=== PATIENT | male | born 1970 | race Caucasian/White ===

== ENCOUNTER 2016-11-18 06:55 | Inpatient (IN) | payer MEDICARE, OTHER, SELFPAY ==
[~2016-11-18] VITALS: Ht 172.7 cm; Wt 100.9 kg
[~2016-11-18 06:55] MED LIST: AMBI5TAB PO; Ambien PO; BUSP10TA PO; BUSP15TA47 PO; CLON0.5T PO; CLON1TAB PO; DEPA500T2 PO; DIVA250T PO; FLUO20CA8 PO; FLUO20CA9 PO; HYDR-4274 PO; HYDRO50TAB PO; KLON1TAB PO; LATU40TA PO; LATU80TA PO; PROZ40CA PO; QUET1TAB8 PO; QUET5TAB PO; REST15CA PO; SERO50TA PO; TEGR100C PO; TRAM50TA2 PO; TRAZ100T4 PO; TRAZ10TA PO; TRAZ50TA4 PO; TRAZO50TA PO; TYLE325C PO; VIST50CA PO
[2016-11-18] MEDS ORDERED: ONDANSETRON 4 MG TAB (S0181) As Ordered ONE (08:00)
[2016-11-18] MEDS ORDERED: GI COCKTAIL 50ML BTL(HYOSCYAMINE/MAALOX/LIDOCAINE VISCOUS)(1:3:1) As Ordered ONE (08:00)
[2016-11-18] MEDS ORDERED: PERCOCET 5MG/325MG TAB As Ordered ONE (08:01)
--- NOTE | 2016-11-18 08:22 | REP ---
Clinical: Pain with recent trauma/fall. Technique: AP, lateral, bilateral oblique views of the left ankle. Findings: Mild anterolateral soft tissue swelling is appreciated. Age-related degenerative changes include subtle spurring at the medial malleolus and small calcaneal heal spur. No acute fracture or dislocation. Ankle mortise intact. Impression: Soft tissue swelling and age-related degenerative changes. No acute fracture or dislocation. Signed by Axel Yu MD 11/18/2016 08:13 A
--- NOTE | 2016-11-18 08:23 | REP ---
Clinical: Trauma. Technique: AP, lateral views of the left knee. Findings: The osseous structures and joint spaces are intact and normal. There is no evidence for acute fracture or dislocation. No joint effusion is appreciated. Surrounding soft tissues are unremarkable. No subcutaneous emphysema or radiodense foreign body. Impression: Normal examination. No acute fracture or dislocation. Signed by Axel Yu MD 11/18/2016 08:14 A
[2016-11-18] MEDS ORDERED: DIVALPROEX 250 MG TAB As Ordered ONE (08:27)
--- NOTE | 2016-11-18 16:11 | EDDOCDS ---
Nurse's Notes [facility] Name: Aramis Yang Age: 46 yrs Sex: Male : 1970 Arrival Date: 11/18/2016 Time: 06:[address] MD: Diagnosis: Major depressive disorder, recurrent, unspecified Presentation: 11/18 06:58 Presenting complaint: Patient states: "I took some pills and drank a lot." Transferred af2 from [place] for mental health eval after 6 hr observation. Mental Health Triage Level: Level 2: The patient was brought to the ED for evaluation because of a legal pickup order. Adult Sepsis Screening: The patient does not have new or worsening altered mentation. Patient's respiratory rate is less than 22. Systolic blood pressure is greater than 100. Patient has a qSOFA score of 0- Negative Sepsis Screen. Suicide/Homicide risk assessment- the patient denies having any suicidal and/or homicidal ideations and does not present with any other emotional, behavioral or mental health complaints. Status: Patient is not a home service director or dependent. Transition of care: patient was not received from another setting of care. 06:58 Acuity: JAMARI Level 3 af2 06:58 Method Of Arrival: Ambulance af2 Triage Assessment: 06:59 General: Appears in no apparent distress, Behavior is cooperative. Pain: Location: left af2 leg Pain currently is 6 out of 10 on a pain scale. Pt Declines HIV testing. The patient is triaged at the bedside. See Assessment in Nurses Notes section of ED record. Neurological: Level of Consciousness is awake, alert, obeys commands, Oriented to person, place, time. Cardiovascular: Heart tones S1 S2 present. Respiratory: Airway is patent Respiratory effort is even, unlabored. Derm: Skin is normal. Historical: - Allergies: No known drug Allergies; - Home Meds: 1. BuSpar 15 mg Oral tab 1 tab tid 2. Depakote 500 mg Oral TbEC 1 tab 2 tabs in am, 2 tabs pm 3. Seroquel 50 mg Oral tab 1 tab nightly 4. Prozac 40 mg Oral cap 1 cap once daily 5. trazodone 100 mg Oral tab HS - PMHx: Bipolar disorder; insomnia; Seizure Disorder; - PSHx: Tonsillectomy; - Social history: Smoking status: Patient uses tobacco products, current every day smoker. No barriers to communication noted, The patient speaks fluent Syrian. - Family history: Not pertinent. - : The pt / caregiver states he / she is not on anticoagulants. Home medication list is obtained from the patient. - Exposure Risk Screening:: None identified. Screenin:31 Screening information is obtained from the patient. Fall risk: No risks identified. ja5 Assistance ADL's: requires no assistance with activities of daily living. Abuse/DV Screen: The patient / caregiver reports he/she is: not in a situation that causes fear, pain or injury. Nutritional screening: On no prescribed diet. Advance Directives: There is an active Power of Tester Operator Helper, Sally Yang, mother. home support is adequate. Assessment: 08:09 General: Appears uncomfortable, Behavior is cooperative. Pain: Location: left lateral ja5 ankle and left knee Pain currently is 8 out of 10 on a pain scale. Neurological: Level of Consciousness is awake, alert, Oriented to person, place, time. Cardiovascular: Capillary refill < 3 seconds Heart tones S1 S2 present. Respiratory: Airway is patent Respiratory effort is even, unlabored, Breath sounds are clear bilaterally. GI: Abdomen is obese, Bowel sounds present X 4 quads. Abd is soft X 4 quads Abd is non tender X 4 quads Reports nausea. Derm: Skin is pink, warm & dry. 10:00 Reassessment: Patient appears in no apparent distress at this time. Breakfast tray has jc4 been delivered. Security observation maintained. 11:01 General: Pt resting on stretcher. No distress noted at this time. Color pink, skin warm jc4 and dry. Respirations easy and full. Security observation continuing. 12:47 General: Appears in no apparent distress, Behavior is cooperative, pleasant. Pain: Pain jc4 currently is 7 out of 10 on a pain scale. Neurological: Level of Consciousness is awake, alert, Oriented to person, place, time. Respiratory: Airway is patent Respiratory effort is even, unlabored, Respiratory pattern is regular, symmetrical. Derm: Skin is pink, warm & dry. 14:40 Reassessment: Patient appears in no apparent distress at this time. jc4 15:30 General: Appears in no apparent distress, comfortable, Behavior is cooperative. Pain: bcj Denies pain. Derm: Skin is pink, warm & dry. Mental Health Eval: 07:38 Mental health consult is initiated at 07:20. Status: The patient is not a home service director or dependent. [facility] Behavioral Health: The patient is not an established patient of [facility] Behavioral Health. Referral Information: Evaluation referral is generated by Pt was transferred from [facility] after taking multiple drug overdose, consuming alcohol. Pt states at the time he "didn't want to wake up".. Pt states he was told he was going to be evicted from his apartment because he plays his music too loud.. The patient was referred for evaluation because . Subjective: The patients chief complaint is I got upset because my landlord wants to evict me. 08:29 Mental Health history: alcohol abuse, depression, Mental Health Admissions: Multiple at [facility] Current Outpatient Mental Health Services: Psychiatrist / Agency: Dr Anaya at [facility]. Therapist / Agency: Phoebe at [facility]. Current living environment is The patient currently lives alone. The patient is single. Patient presents to Emergency Department with the following symptoms within the past 2 weeks: alcohol abuse, depressed mood, feelings of helplessness/hopelessness, poor impulse control, suicidal ideation with attempt/gesture by pills. Mental status exam: Patients appearance is appropriate, Patient's behavior is cooperative, Speech is normal. Affect is appropriate. 09:31 Mental status exam: Mood is depressed. Hallucinations are denied. Appetite is normal. Memory is good. Energy level is hyperactive. Content of thought is normal. Thought process is intact. Cognitive level is oriented to person, place, time and situation Patient's insight is poor. Judgement is poor. Rapport with interviewer is good. Suicidal Ideation present with a plan to kill self by pills. Homicidal ideation is not present. Disposition: Medically cleared for disposition by Shazia Kingsley MD Psychiatric Consult is performed by phone with Dr Glenn Cox MD. [facility] Admission Criteria: The patient has had a suicide attempt in the recent past. pt took polysubstance overdose. The patient is experiencing suicidal ideation. The patient requires continuous observation and/or control to protect self, others or property. The patient's care requires a multi-modal treatment plan under close supervision and coordination due to the complexity and severity of the patient's symptoms. The patient requires administration and monitoring of psychoactive medications by skilled medical providers due to the side effects of the psychoactive medications or significant dosage adjustments. Legal Status: Patient's legal status will be Emergency admission: 9.39. DSM-V Differential Diagnosis: Bipolar I Disorder (F31.0) Current or most recent episode depressed, severe (F31.34). Narrative:. 12:19 Narrative: Pt states he took overdose of most of his medications because his landlord ac said he has to leave due to playing his music too loud. Pt states he thinks his landlord is trying to kick him out so he can charge higher rent for the summer. Pt reports compliance with medications, treatment. Pt reports sleep, appetite are unchanged. Pt denies drug use, states he drank vodka and orange juice last night and took the medications in order to kill himself. PT denies AH/VH, no delusions elicited. Pt states he has overdosed before on multiple occasions, at least once resulting in him being intubated for 5 days. Pt's insight, judgment are poor. Vital Signs: 06:58 BP 147 / 101; Pulse 86; Resp 20; Temp 96.7(T); Pulse Ox 96% on R/A; Weight 97.07 kg dpm (R); Height 5 ft. 8 in. (172.72 cm) (R); Pain 8/10; 09:30 Pain 7/10; jc4 12:00 BP 144 / 87; Pulse 104; Resp 20; Temp 96.0(O); Pulse Ox 95% on R/A; Pain 7/10; jc4 15:52 BP 156 / 98; Pulse 82; Resp 16; Temp 97.2(O); Pulse Ox 95% on R/A; bcj 16:09 BP 146 / 82; pml 06:58 Body Mass Index 32.54 (97.07 kg, 172.72 cm) dpm Vitals: 11:03 Log In Time N/A - ambulance arrival. jc4 ED Course: 06:56 Patient visited by Ronna Moreno Reg. hs2 06:56 Patient moved to Waiting hs2 06:56 Patient moved to [facility] hs2 06:58 Patient visited by Anant Mckee. dpm 06:59 Triage Initiated af2 06:59 Pt greeted and oriented to ED. Patient advised of names of staff involved in care, dpm location of call joseph, wait times and NPO status. Patient has correct armband on for positive identification. Placed in gown. Placed in psych safe attire. Security observing. Property removed, inventory done, secured in belongings bag- placed in locked locker. Placed in locker 2. Psych Safety Check: Location: Psych Room. Visual Assessment: Cooperative. 07:06 Ai Sam,RN is Primary Nurse. ja5 07:07 Patient visited by Hilary Adamson,HIEN. af2 07:15 Teena Moise, HIEN is Primary Nurse. jc4 07:15 Shazia Kingsley MD is Attending Physician. fg 07:15 Patient visited by Shazia Kingsley MD. fg 07:30 Patient visited by Anant Mckee. dpm 07:46 Patient visited by Anant Mckee. dpm 07:47 [facility] Payment Agreement was scanned into [employer] and attached to record. mm15 08:02 Patient visited by Anant Mckee. dpm 08:18 Patient visited by Anant Mckee. dpm 08:30 The patient / caregiver is instructed regarding the plan of care and ED course. jc4 08:31 Patient visited by Anant Mckee. dpm 08:50 Patient visited by Anant Mckee. dpm 08:59 Ankle, Complete Returned. EDMS 08:59 Knee, (AP\\E\\Lat) Returned. EDMS 09:02 Patient visited by Anant Mckee. dpm 09:18 Patient visited by Anant Mckee. dpm 09:32 Patient visited by Anant Mckee. dpm 09:46 Patient visited by Anant Mckee. dpm 10:02 Patient visited by Anant Mckee. dpm 10:16 Patient visited by Anant Mckee. dpm 10:32 Patient visited by Anant Mckee. dpm 10:48 Patient visited by Anant Mckee. dpm 11:09 Patient visited by Anant Mckee. dpm 11:23 Patient visited by Anant Mckee. dpm 11:47 Patient visited by Anant Mckee. dpm 12:01 Patient visited by Anant Mckee. dpm 12:17 Patient visited by Anant Mckee. dpm 12:36 Patient visited by Anant Mckee. dpm 12:46 Patient visited by Anant Mckee. dpm 13:03 Patient visited by Anant Mckee. dpm 13:18 Patient visited by Anant Mckee. dpm 13:32 Patient visited by Anant Mckee. dpm 13:48 Patient visited by Anant Mckee. dpm 14:17 Patient visited by Anant Mckee. dpm 14:57 Patient visited by Anant Mckee. dpm 15:17 Patient visited by Anant Mckee. dpm 15:30 Resting quietly. Awaiting bed assignment. bcj 15:30 Security observing. bcj 15:31 Patient visited by Dileep Paredes, HIEN. bcj 15:43 Patient visited by Anant Mckee. dpm 15:43 E Legal paperwork was scanned into [employer] and attached to record. jl 15:53 Patient visited by Dileep Paredes, HIEN. bcj 15:56 Glenn Cox MD is Hospitalizing Provider. fg 16:00 Patient visited by Anant Mckee. dpm 16:03 No IV's were initiated during this patient's visit. No procedures done that require [facility] assistance. 16:05 Patient visited by Dileep Paredes, HIEN. bcj 16:10 Patient visited by Haydee Crenshaw,HIEN. pml Administered Medications: 08:06 Drug: GI Cocktail - (Alum-Mag Hydroxide-Simeth Suspension 225 mg-200 mg-25 mg/5 mL 30 ja5 ml, Lidocaine Liquid 2 % 10 ml, Hyoscyamine Liquid 10 ml) Route: PO; 08:06 Drug: oxyCODONE-acetaminophen 1 tabs [oxycodone-acetaminophen 5 mg-325 mg tablet (1 ja5 tabs)] Route: PO; 09:30 Follow up: Pain 7/10 Adult jc4 08:06 Drug: Ondansetron 4 mg [ondansetron HCl 4 mg tablet (1 tabs)] Route: PO; ja5 09:30 Follow up: Denies nausea jc4 08:31 Drug: Depakote DR - Divalproex Sodium 1000 mg [divalproex 250 mg tablet,delayed release ja5 (4 tabs)] Route: PO; Attachments: 15:43 E Legal paperwork jl Intake: Order Results: Radiology Order: Ankle, Complete Test: Ankle, Complete REASON FOR EXAMINATION: diffuse ankle pain after fall; Clinical: Pain with recent trauma/fall.; ; Technique: AP, lateral, bilateral oblique views of the left ankle.; ; Findings:; Mild anterolateral soft tissue swelling is appreciated. Age-related degenerative; changes include subtle spurring at the medial malleolus and small calcaneal heal; spur. No acute fracture or dislocation. Ankle mortise intact.; ; Impression:; Soft tissue swelling and age-related degenerative changes.; No acute fracture or dislocation.; ; ; Signed by; Axel Yu MD 11/18/2016 08:13 A; Radiology Order: Knee, (AP\\E\\Lat) Test: Knee, (AP\\E\\Lat) REASON FOR EXAMINATION: bilateral knee pain after fall; Clinical: Trauma.; ; Technique: AP, lateral views of the left knee.; ; Findings: The osseous structures and joint spaces are intact and normal. There; is no evidence for acute fracture or dislocation. No joint effusion is; appreciated. Surrounding soft tissues are unremarkable. No subcutaneous; emphysema or radiodense foreign body.; ; Impression:; Normal examination. No acute fracture or dislocation.; ; ; Signed by; Axel Yu MD 11/18/2016 08:14 A; Outcome: 15:56 Decision to Hospitalize by Provider. fg 16:03 Discharge Assessment: patient administered narcotics - no. The following High Risk [facility] Discharge criteria are identified: None. Admitted to Psych accompanied by tech, via wheelchair. Condition: stable. No special radiology studies were completed. 16:10 Patient left the ED. pml Signatures: Dispatcher [employer] EDMS Dileep Paredes RN HIEN bcInocente Olivera, PSA PSA ac Burt Hoover, PSA PSA Teena Armando RN RN alison4 Haydee Crenshaw RN RN pml Marolf, Dustin dpm McGrath, Marlynn mm15 Hilary Adamson RN RN af2 Shazia Kingsley MD MD Ronna Moreno, Reg Reg hs2 Ai Sam RN RN ja5 MTDD
--- NOTE | 2016-11-18 16:11 | EDDOCDS ---
Physician Documentation [facility] Name: Aramis Yang Age: 46 yrs Sex: Male : 1970 Arrival Date: 11/18/2016 Time: 06:55 Bed [facility] MD: Disposition: 11/18/16 15:56 Hospitalization ordered by Glenn Cox for Inpatient Admission. Preliminary diagnosis is Major depressive disorder, recurrent, unspecified. - Bed requested for Admit. - Status is Inpatient Admission. pml - Condition is Stable. - Problem is new. - Symptoms have worsened. Historical: - Allergies: No known drug Allergies; - Home Meds: 1. BuSpar 15 mg Oral tab 1 tab tid 2. Depakote 500 mg Oral TbEC 1 tab 2 tabs in am, 2 tabs pm 3. Seroquel 50 mg Oral tab 1 tab nightly 4. Prozac 40 mg Oral cap 1 cap once daily 5. trazodone 100 mg Oral tab HS - PMHx: Bipolar disorder; insomnia; Seizure Disorder; - PSHx: Tonsillectomy; - Social history: Smoking status: Patient uses tobacco products, current every day smoker. No barriers to communication noted, The patient speaks fluent Equ[place] Guinean. - Family history: Not pertinent. - : The pt / caregiver states he / she is not on anticoagulants. Home medication list is obtained from the patient. - Exposure Risk Screening:: None identified. Vital Signs: 11/18 06:58 BP 147 / 101; Pulse 86; Resp 20; Temp 96.7(T); Pulse Ox 96% on R/A; Weight 97.07 kg / dpm 214 lbs (R); Height 5 ft. 8 in. (172.72 cm) (R); Pain 8/10; 09:30 Pain 7/10; jc4 12:00 BP 144 / 87; Pulse 104; Resp 20; Temp 96.0(O); Pulse Ox 95% on R/A; Pain 7/10; jc4 15:52 BP 156 / 98; Pulse 82; Resp 16; Temp 97.2(O); Pulse Ox 95% on R/A; bcj 16:09 BP 146 / 82; pml 06:58 Body Mass Index 32.54 (97.07 kg, 172.72 cm) dpm MDM: 07:23 GI Cocktail - (Alum-Mag Hydroxide-Simeth 30 ml, Lidocaine 10 ml, Hyoscyamine 10 ml) PO fg once; Pre-mixed 50mL unit dose ordered. 07:23 oxyCODONE-acetaminophen 5 mg-325 mg 1 tabs PO once ordered. fg 07:23 Ondansetron 4 mg PO once ordered. fg 07:25 Ankle, Complete Ordered. EDMS 07:25 Knee, (AP\E\Lat) Ordered. EDMS 07:46 Financial registration complete. mm15 07:47 [facility] Payment Agreement was scanned into [employer] and attached to record. mm15 08:12 Consult: Specialized Developer ordered. dy 08:12 Misc. Nursing Order ordered. dy 08:23 REGULAR DIET PLASTIC BLAKELY+DIET ordered. EDMS 08:[address] - Divalproex Sodium Delayed Release Tablet 1000 mg PO once ordered. jc4 12:49 REGULAR DIET PLASTIC BLAKELY+DIET ordered. EDMS 15:41 Admit to IMHU: ordered. EDMS 15:43 [facility] Legal paperwork was scanned into [employer] and attached to record. jl 16:10 Consult: Specialized Developer complete. pml Administered Medications: 08:06 Drug: GI Cocktail - (Alum-Mag Hydroxide-Simeth Suspension 225 mg-200 mg-25 mg/5 mL 30 ja5 ml, Lidocaine Liquid 2 % 10 ml, Hyoscyamine Liquid 10 ml) Route: PO; 08:06 Drug: oxyCODONE-acetaminophen 1 tabs [oxycodone-acetaminophen 5 mg-325 mg tablet (1 ja5 tabs)] Route: PO; 09:30 Follow up: Pain 7/10 Adult jc4 08:06 Drug: Ondansetron 4 mg [ondansetron HCl 4 mg tablet (1 tabs)] Route: PO; ja5 09:30 Follow up: Denies nausea jc4 08:31 Drug: Depakote DR - Divalproex Sodium 1000 mg [divalproex 250 mg tablet,delayed release ja5 (4 tabs)] Route: PO; Signatures: Dispatcher [employer] EDMS Burt Hoover, PSA PSA Aidan Montes De Oca RN RN dy Castle, Jennifer, RN RN jc4 Haydee Crenshaw RN RN pml Guillermina Draper mm15 Hilary Adamson RN RN af2 Shazia Kingsley MD MD fg Anderson, Jessica RN ja5 The chart was reviewed and I authenticate all verbal orders and agree with the evaluation and treatment provided.Attachments: 07:47 [facility] Payment Agreement mm15 MTDD
[2016-11-18] MEDS ORDERED: SERO1TAB PO (16:24)
[2016-11-18] MEDS ORDERED: ZALE10CA PO (16:24)
[2016-11-18] MEDS ORDERED: DEPA500T2 PO (16:24)
[2016-11-18] MEDS ORDERED: BUSP15TA47 PO (16:24)
[2016-11-18] MEDS ORDERED: PROZ40CA PO (16:24)
[2016-11-18] MEDS ORDERED: TRAM50TA2 PO (16:24)
[2016-11-18] MEDS ORDERED: TRAZ150T14 PO (16:24)
[2016-11-18] MEDS ORDERED: KEPP500T6 PO (16:24)
[2016-11-18 16:47] VITALS: BP 146/90
[2016-11-18] MEDS ORDERED: MOM 30ML SUSPENSION UDC PO PRN (18:00)
[2016-11-18] MEDS ORDERED: MAALOX 30 ML SUSP *UDC PO PRN (18:00)
[2016-11-18] MEDS: traMADol 50 MG TAB PO PRN (18:27)
[2016-11-18] MEDS: QUEtiapine FUMARATE 100 MG TAB PO SCH (20:05)
[2016-11-18] MEDS: DIVALPROEX 500MG *ER* TAB PO SCH (20:05)
[2016-11-18] MEDS: levETIRAcetam 250MG TABLET (KEPPRA) PO SCH (20:05)
[2016-11-18] MEDS: busPIRone 5 MG TAB PO SCH (20:05)
[2016-11-18] MEDS: traZODone 50 MG TAB PO SCH (21:00)
[2016-11-19 07:00] VITALS: BP 148/101
[2016-11-19] MEDS: busPIRone 5 MG TAB PO SCH ×3 (09:53→20:33)
[2016-11-19] MEDS: levETIRAcetam 250MG TABLET (KEPPRA) PO SCH ×2 (09:54→22:26)
[2016-11-19] MEDS: DIVALPROEX 500MG *ER* TAB PO SCH ×2 (09:54→20:33)
[2016-11-19] MEDS: FLUoxetine 20 MG CAP PO SCH (09:54)
[2016-11-19] MEDS: NICOTINE 21MG/24HR 1 EA TRANSDERMAL TD SCH (09:58)
[2016-11-19 18:00] VITALS: BP 157/98
[2016-11-19] MEDS: traZODone 50 MG TAB PO SCH (22:26)
[2016-11-19] MEDS: QUEtiapine FUMARATE 100 MG TAB PO SCH (22:26)
[2016-11-20 06:23] VITALS: BP 134/81
[2016-11-20 07:23] LABS: ALBUMIN 3.2 GM/DL (3.2-5.2); ALBUMIN/GLOBULIN RATIO 1.14 (1.00-1.93); ALKALINE PHOSPHATASE 105 U/L (45-117); ALT/SGPT 28 U/L (12-78); ANION GAP 8 MEQ/L (8-16); AST/SGOT 15 U/L (15-37); BILIRUBIN,TOTAL 0.2 MG/DL (0.2-1.0); BLOOD UREA NITROGEN 20 MG/DL (7-18); CALCIUM LEVEL 8.3 MG/DL (8.5-10.1); CARBON DIOXIDE LEVEL 30 MEQ/L (21-32); CHLORIDE LEVEL 102 MEQ/L (98-107); CREATININE FOR GFR 0.92 MG/DL (0.70-1.30); GLOMERULAR FILTRATION RATE > 60.0 (>60); GLUCOSE, FASTING 111 MG/DL (70-105); POTASSIUM SERUM 4.3 MEQ/L (3.5-5.1); SODIUM LEVEL 140 MEQ/L (136-145)
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
[2016-11-20] MEDS: levETIRAcetam 250MG TABLET (KEPPRA) PO SCH ×2 (09:00→21:00)
[2016-11-20] MEDS: NICOTINE 21MG/24HR 1 EA TRANSDERMAL TD SCH (09:12)
[2016-11-20] MEDS: DIVALPROEX 500MG *ER* TAB PO SCH ×2 (09:13→20:22)
[2016-11-20] MEDS: FLUoxetine 20 MG CAP PO SCH (09:13)
[2016-11-20] MEDS: busPIRone 5 MG TAB PO SCH ×3 (09:13→20:25)
[2016-11-20] MEDS: traMADol 50 MG TAB PO PRN (15:12)
--- NOTE | 2016-11-20 17:11 | EDDOCDS ---
Nurse's Notes [facility] Name: Aramis Yang Age: 46 yrs Sex: Male : 1970 Arrival Date: 11/18/2016 Time: 06:[address] MD: Diagnosis: Major depressive disorder, recurrent, unspecified Presentation: 11/18 06:58 Presenting complaint: Patient states: "I took some pills and drank a lot." Transferred af2 from [facility] for mental health eval after 6 hr observation. Mental Health Triage Level: Level 2: The patient was brought to the ED for evaluation because of a legal pickup order. Adult Sepsis Screening: The patient does not have new or worsening altered mentation. Patient's respiratory rate is less than 22. Systolic blood pressure is greater than 100. Patient has a qSOFA score of 0- Negative Sepsis Screen. Suicide/Homicide risk assessment- the patient denies having any suicidal and/or homicidal ideations and does not present with any other emotional, behavioral or mental health complaints. Status: Patient is not a client services vice president or dependent. Transition of care: patient was not received from another setting of care. 06:58 Acuity: JAMARI Level 3 af2 06:58 Method Of Arrival: Ambulance af2 Triage Assessment: 06:59 General: Appears in no apparent distress, Behavior is cooperative. Pain: Location: left af2 leg Pain currently is 6 out of 10 on a pain scale. Pt Declines HIV testing. The patient is triaged at the bedside. See Assessment in Nurses Notes section of ED record. Neurological: Level of Consciousness is awake, alert, obeys commands, Oriented to person, place, time. Cardiovascular: Heart tones S1 S2 present. Respiratory: Airway is patent Respiratory effort is even, unlabored. Derm: Skin is normal. Historical: - Allergies: No known drug Allergies; - Home Meds: 1. BuSpar 15 mg Oral tab 1 tab tid 2. Depakote 500 mg Oral TbEC 1 tab 2 tabs in am, 2 tabs pm 3. Seroquel 50 mg Oral tab 1 tab nightly 4. Prozac 40 mg Oral cap 1 cap once daily 5. trazodone 100 mg Oral tab HS - PMHx: Bipolar disorder; insomnia; Seizure Disorder; - PSHx: Tonsillectomy; - Social history: Smoking status: Patient uses tobacco products, current every day smoker. No barriers to communication noted, The patient speaks fluent Slovenian. - Family history: Not pertinent. - : The pt / caregiver states he / she is not on anticoagulants. Home medication list is obtained from the patient. - Exposure Risk Screening:: None identified. Screenin:31 Screening information is obtained from the patient. Fall risk: No risks identified. ja5 Assistance ADL's: requires no assistance with activities of daily living. Abuse/DV Screen: The patient / caregiver reports he/she is: not in a situation that causes fear, pain or injury. Nutritional screening: On no prescribed diet. Advance Directives: There is an active Power of Crepe Machine Operator, Sally Yang, mother. home support is adequate. Assessment: 08:09 General: Appears uncomfortable, Behavior is cooperative. Pain: Location: left lateral ja5 ankle and left knee Pain currently is 8 out of 10 on a pain scale. Neurological: Level of Consciousness is awake, alert, Oriented to person, place, time. Cardiovascular: Capillary refill < 3 seconds Heart tones S1 S2 present. Respiratory: Airway is patent Respiratory effort is even, unlabored, Breath sounds are clear bilaterally. GI: Abdomen is obese, Bowel sounds present X 4 quads. Abd is soft X 4 quads Abd is non tender X 4 quads Reports nausea. Derm: Skin is pink, warm & dry. 10:00 Reassessment: Patient appears in no apparent distress at this time. Breakfast tray has jc4 been delivered. Security observation maintained. 11:01 General: Pt resting on stretcher. No distress noted at this time. Color pink, skin warm jc4 and dry. Respirations easy and full. Security observation continuing. 12:47 General: Appears in no apparent distress, Behavior is cooperative, pleasant. Pain: Pain jc4 currently is 7 out of 10 on a pain scale. Neurological: Level of Consciousness is awake, alert, Oriented to person, place, time. Respiratory: Airway is patent Respiratory effort is even, unlabored, Respiratory pattern is regular, symmetrical. Derm: Skin is pink, warm & dry. 14:40 Reassessment: Patient appears in no apparent distress at this time. jc4 15:30 General: Appears in no apparent distress, comfortable, Behavior is cooperative. Pain: bcj Denies pain. Derm: Skin is pink, warm & dry. Mental Health Eval: 07:38 Mental health consult is initiated at 07:20. Status: The patient is not a client services vice president or dependent. [facility] Behavioral Health: The patient is not an established patient of [facility] Behavioral Health. Referral Information: Evaluation referral is generated by Pt was transferred from [facility] after taking multiple drug overdose, consuming alcohol. Pt states at the time he "didn't want to wake up".. Pt states he was told he was going to be evicted from his apartment because he plays his music too loud.. The patient was referred for evaluation because . Subjective: The patients chief complaint is I got upset because my landlord wants to evict me. 08:29 Mental Health history: alcohol abuse, depression, Mental Health Admissions: Multiple at [facility] Current Outpatient Mental Health Services: Psychiatrist / Agency: Dr Anaya at [facility]. Therapist / Agency: Phoebe at [facility]. Current living environment is The patient currently lives alone. The patient is single. Patient presents to Emergency Department with the following symptoms within the past 2 weeks: alcohol abuse, depressed mood, feelings of helplessness/hopelessness, poor impulse control, suicidal ideation with attempt/gesture by pills. Mental status exam: Patients appearance is appropriate, Patient's behavior is cooperative, Speech is normal. Affect is appropriate. 09:31 Mental status exam: Mood is depressed. Hallucinations are denied. Appetite is normal. Memory is good. Energy level is hyperactive. Content of thought is normal. Thought process is intact. Cognitive level is oriented to person, place, time and situation Patient's insight is poor. Judgement is poor. Rapport with interviewer is good. Suicidal Ideation present with a plan to kill self by pills. Homicidal ideation is not present. Disposition: Medically cleared for disposition by Shazia Kingsley MD Psychiatric Consult is performed by phone with Dr Glenn Cox MD. [facility] Admission Criteria: The patient has had a suicide attempt in the recent past. pt took polysubstance overdose. The patient is experiencing suicidal ideation. The patient requires continuous observation and/or control to protect self, others or property. The patient's care requires a multi-modal treatment plan under close supervision and coordination due to the complexity and severity of the patient's symptoms. The patient requires administration and monitoring of psychoactive medications by skilled medical providers due to the side effects of the psychoactive medications or significant dosage adjustments. Legal Status: Patient's legal status will be Emergency admission: 9.39. DSM-V Differential Diagnosis: Bipolar I Disorder (F31.0) Current or most recent episode depressed, severe (F31.34). Narrative:. 12:19 Narrative: Pt states he took overdose of most of his medications because his landlord ac said he has to leave due to playing his music too loud. Pt states he thinks his landlord is trying to kick him out so he can charge higher rent for the summer. Pt reports compliance with medications, treatment. Pt reports sleep, appetite are unchanged. Pt denies drug use, states he drank vodka and orange juice last night and took the medications in order to kill himself. PT denies AH/VH, no delusions elicited. Pt states he has overdosed before on multiple occasions, at least once resulting in him being intubated for 5 days. Pt's insight, judgment are poor. Vital Signs: 06:58 BP 147 / 101; Pulse 86; Resp 20; Temp 96.7(T); Pulse Ox 96% on R/A; Weight 97.07 kg dpm (R); Height 5 ft. 8 in. (172.72 cm) (R); Pain 8/10; 09:30 Pain 7/10; jc4 12:00 BP 144 / 87; Pulse 104; Resp 20; Temp 96.0(O); Pulse Ox 95% on R/A; Pain 7/10; jc4 15:52 BP 156 / 98; Pulse 82; Resp 16; Temp 97.2(O); Pulse Ox 95% on R/A; bcj 16:09 BP 146 / 82; pml 06:58 Body Mass Index 32.54 (97.07 kg, 172.72 cm) dpm Vitals: 11:03 Log In Time N/A - ambulance arrival. jc4 ED Course: 06:56 Patient visited by Ronna Moreno Reg. hs2 06:56 Patient moved to Waiting hs2 06:56 Patient moved to [facility] hs2 06:58 Patient visited by Anant Mckee. dpm 06:59 Triage Initiated af2 06:59 Pt greeted and oriented to ED. Patient advised of names of staff involved in care, dpm location of call joseph, wait times and NPO status. Patient has correct armband on for positive identification. Placed in gown. Placed in psych safe attire. Security observing. Property removed, inventory done, secured in belongings bag- placed in locked locker. Placed in locker 2. Psych Safety Check: Location: Psych Room. Visual Assessment: Cooperative. 07:06 Ai Sam,RN is Primary Nurse. ja5 07:07 Patient visited by Hilary Adamson,HIEN. af2 07:15 Teena Moise, HINE is Primary Nurse. jc4 07:15 Shazia Kingsley MD is Attending Physician. fg 07:15 Patient visited by Shazia Kingsley MD. fg 07:30 Patient visited by Anant Mckee. dpm 07:46 Patient visited by Anant Mckee. dpm 07:47 [facility] Payment Agreement was scanned into [employer] and attached to record. mm15 08:02 Patient visited by Anant Mckee. dpm 08:18 Patient visited by Anant Mckee. dpm 08:30 The patient / caregiver is instructed regarding the plan of care and ED course. jc4 08:31 Patient visited by Anant Mckee. dpm 08:50 Patient visited by Anant Mckee. dpm 08:59 Ankle, Complete Returned. EDMS 08:59 Knee, (AP\\E\\Lat) Returned. EDMS 09:02 Patient visited by Anant Mckee. dpm 09:18 Patient visited by Anant Mckee. dpm 09:32 Patient visited by Anant Mckee. dpm 09:46 Patient visited by Anant Mckee. dpm 10:02 Patient visited by Anant Mckee. dpm 10:16 Patient visited by Anant Mckee. dpm 10:32 Patient visited by Anant Mckee. dpm 10:48 Patient visited by Anant Mckee. dpm 11:09 Patient visited by Anant Mckee. dpm 11:23 Patient visited by Anant Mckee. dpm 11:47 Patient visited by Anant Mckee. dpm 12:01 Patient visited by Anant Mckee. dpm 12:17 Patient visited by Anant Mckee. dpm 12:36 Patient visited by Anant Mckee. dpm 12:46 Patient visited by Anant Mckee. dpm 13:03 Patient visited by Anant Mckee. dpm 13:18 Patient visited by Anant Mckee. dpm 13:32 Patient visited by Anant Mckee. dpm 13:48 Patient visited by Anant Mckee. dpm 14:17 Patient visited by Anant Mckee. dpm 14:57 Patient visited by Anant Mckee. dpm 15:17 Patient visited by Anant Mckee. dpm 15:30 Resting quietly. Awaiting bed assignment. bcj 15:30 Security observing. bcj 15:31 Patient visited by Dileep Paredes, HIEN. bcj 15:43 Patient visited by Anant Mckee. dpm 15:43 [facility] Legal paperwork was scanned into [employer] and attached to record. jl 15:53 Patient visited by Dileep Paredes, HIEN. bcj 15:56 Glenn Cox MD is Hospitalizing Provider. fg 16:00 Patient visited by Anant Mckee. dpm 16:03 No IV's were initiated during this patient's visit. No procedures done that require [facility] assistance. 16:05 Patient visited by Dileep Paredes, HIEN. bcj 16:10 Patient visited by Haydee Crenshaw RN. pml 11/19 09:25 T-Sheet-- Draft Copy was scanned into [employer] and attached to record. gb Administered Medications: 11/18 08:06 Drug: GI Cocktail - (Alum-Mag Hydroxide-Simeth Suspension 225 mg-200 mg-25 mg/5 mL 30 ja5 ml, Lidocaine Liquid 2 % 10 ml, Hyoscyamine Liquid 10 ml) Route: PO; 08:06 Drug: oxyCODONE-acetaminophen 1 tabs [oxycodone-acetaminophen 5 mg-325 mg tablet (1 ja5 tabs)] Route: PO; 09:30 Follow up: Pain 7/10 Adult jc4 08:06 Drug: Ondansetron 4 mg [ondansetron HCl 4 mg tablet (1 tabs)] Route: PO; ja5 09:30 Follow up: Denies nausea jc4 08:31 Drug: Depakote DR - Divalproex Sodium 1000 mg [divalproex 250 mg tablet,delayed release ja5 (4 tabs)] Route: PO; Attachments: 15:43 E Legal paperwork jl Intake: Order Results: Radiology Order: Ankle, Complete Test: Ankle, Complete REASON FOR EXAMINATION: diffuse ankle pain after fall; Clinical: Pain with recent trauma/fall.; ; Technique: AP, lateral, bilateral oblique views of the left ankle.; ; Findings:; Mild anterolateral soft tissue swelling is appreciated. Age-related degenerative; changes include subtle spurring at the medial malleolus and small calcaneal heal; spur. No acute fracture or dislocation. Ankle mortise intact.; ; Impression:; Soft tissue swelling and age-related degenerative changes.; No acute fracture or dislocation.; ; ; Signed by; Axel Yu MD 11/18/2016 08:13 A; Radiology Order: Knee, (AP\\E\\Lat) Test: Knee, (AP\\E\\Lat) REASON FOR EXAMINATION: bilateral knee pain after fall; Clinical: Trauma.; ; Technique: AP, lateral views of the left knee.; ; Findings: The osseous structures and joint spaces are intact and normal. There; is no evidence for acute fracture or dislocation. No joint effusion is; appreciated. Surrounding soft tissues are unremarkable. No subcutaneous; emphysema or radiodense foreign body.; ; Impression:; Normal examination. No acute fracture or dislocation.; ; ; Signed by; Axel Yu MD 11/18/2016 08:14 A; Outcome: 11/18 15:56 Decision to Hospitalize by Provider. fg 16:03 Discharge Assessment: patient administered narcotics - no. The following High Risk [facility] Discharge criteria are identified: None. Admitted to Psych accompanied by tech, via wheelchair. Condition: stable. No special radiology studies were completed. 16:10 Patient left the ED. pml Signatures: Dispatcher [employer] EDMS Dileep Paredes RN HIEN bcInocente Olivera, PSA PSA Burt Levy, PSA PSA jl Princess Gordon, Reg Reg gb Teena Moise RN RN jc4 Haydee Crenshaw RN RN pml Anant Mckee dpm, Marlynn mm15 Hilary Adamson RN RN af2 Shazia Kingsley MD MD Ronna Moreno, Reg Reg hs2 Flaco,Ai,RN RN ja5 Chart Complete MTDD
--- NOTE | 2016-11-20 17:11 | EDDOCDS ---
Physician Documentation [facility] Name: Aramis Yang Age: 46 yrs Sex: Male : 1970 Arrival Date: 11/18/2016 Time: 06:55 Bed [facility] MD: Disposition: 11/18/16 15:56 Hospitalization ordered by Glenn Cox for Inpatient Admission. Preliminary diagnosis is Major depressive disorder, recurrent, unspecified. - Bed requested for Admit. - Status is Inpatient Admission. pml - Condition is Stable. - Problem is new. - Symptoms have worsened. Historical: - Allergies: No known drug Allergies; - Home Meds: 1. BuSpar 15 mg Oral tab 1 tab tid 2. Depakote 500 mg Oral TbEC 1 tab 2 tabs in am, 2 tabs pm 3. Seroquel 50 mg Oral tab 1 tab nightly 4. Prozac 40 mg Oral cap 1 cap once daily 5. trazodone 100 mg Oral tab HS - PMHx: Bipolar disorder; insomnia; Seizure Disorder; - PSHx: Tonsillectomy; - Social history: Smoking status: Patient uses tobacco products, current every day smoker. No barriers to communication noted, The patient speaks fluent Slovenian. - Family history: Not pertinent. - : The pt / caregiver states he / she is not on anticoagulants. Home medication list is obtained from the patient. - Exposure Risk Screening:: None identified. Vital Signs: 11/18 06:58 BP 147 / 101; Pulse 86; Resp 20; Temp 96.7(T); Pulse Ox 96% on R/A; Weight 97.07 kg / dpm 214 lbs (R); Height 5 ft. 8 in. (172.72 cm) (R); Pain 8/10; 09:30 Pain 7/10; jc4 12:00 BP 144 / 87; Pulse 104; Resp 20; Temp 96.0(O); Pulse Ox 95% on R/A; Pain 7/10; jc4 15:52 BP 156 / 98; Pulse 82; Resp 16; Temp 97.2(O); Pulse Ox 95% on R/A; bcj 16:09 BP 146 / 82; pml 06:58 Body Mass Index 32.54 (97.07 kg, 172.72 cm) dpm MDM: 07:23 GI Cocktail - (Alum-Mag Hydroxide-Simeth 30 ml, Lidocaine 10 ml, Hyoscyamine 10 ml) PO fg once; Pre-mixed 50mL unit dose ordered. 07:23 oxyCODONE-acetaminophen 5 mg-325 mg 1 tabs PO once ordered. fg 07:23 Ondansetron 4 mg PO once ordered. fg 07:25 Ankle, Complete Ordered. EDMS 07:25 Knee, (AP\E\Lat) Ordered. EDMS 07:46 Financial registration complete. mm15 07:47 [facility] Payment Agreement was scanned into [employer] and attached to record. mm15 08:12 Consult: Tape Sewing Machine Operator ordered. dy 08:12 Misc. Nursing Order ordered. dy 08:23 REGULAR DIET PLASTIC BLAKELY+DIET ordered. EDMS 08:[address] - Divalproex Sodium Delayed Release Tablet 1000 mg PO once ordered. jc4 12:49 REGULAR DIET PLASTIC BLAKELY+DIET ordered. EDMS 15:41 Admit to IMHU: ordered. EDMS 15:43 [facility] Legal paperwork was scanned into [employer] and attached to record. jl 16:10 Consult: Tape Sewing Machine Operator complete. pml 11/19 09:25 T-Sheet-- Draft Copy was scanned into [employer] and attached to record. gb Administered Medications: 11/18 08:06 Drug: GI Cocktail - (Alum-Mag Hydroxide-Simeth Suspension 225 mg-200 mg-25 mg/5 mL 30 ja5 ml, Lidocaine Liquid 2 % 10 ml, Hyoscyamine Liquid 10 ml) Route: PO; 08:06 Drug: oxyCODONE-acetaminophen 1 tabs [oxycodone-acetaminophen 5 mg-325 mg tablet (1 ja5 tabs)] Route: PO; 09:30 Follow up: Pain 7/10 Adult jc4 08:06 Drug: Ondansetron 4 mg [ondansetron HCl 4 mg tablet (1 tabs)] Route: PO; ja5 09:30 Follow up: Denies nausea jc4 08:31 Drug: Depakote DR - Divalproex Sodium 1000 mg [divalproex 250 mg tablet,delayed release ja5 (4 tabs)] Route: PO; Signatures: Dispatcher [employer] EDMS Burt Hoover, PSA PSA Princess Dale, Reg Reg gb Aidan Gallegos, RN RN Teena Lin, HIEN RN jc4 Haydee CrenshawRN RN pml Guillermina Draper mm15 Hilary Adamson RN RN [id number] Shazia Kingsley MD MD fg Anderson, Jessica RN ja5 The chart was reviewed and I authenticate all verbal orders and agree with the evaluation and treatment provided.Attachments: 07:47 [facility] Payment Agreement mm15 11/19 09:25 T-Sheet-- Draft Copy gb Chart Complete MTDD
--- NOTE | 2016-11-20 17:11 | EDDOCDS ---
Physician Documentation [facility] Name: Aramis Yang Age: 46 yrs Sex: Male : 1970 Arrival Date: 11/18/2016 Time: 06:55 Bed [facility] MD: Disposition: 11/18/16 15:56 Hospitalization ordered by Glenn Cox for Inpatient Admission. Preliminary diagnosis is Major depressive disorder, recurrent, unspecified. - Bed requested for Admit. - Status is Inpatient Admission. pml - Condition is Stable. - Problem is new. - Symptoms have worsened. Historical: - Allergies: No known drug Allergies; - Home Meds: 1. BuSpar 15 mg Oral tab 1 tab tid 2. Depakote 500 mg Oral TbEC 1 tab 2 tabs in am, 2 tabs pm 3. Seroquel 50 mg Oral tab 1 tab nightly 4. Prozac 40 mg Oral cap 1 cap once daily 5. trazodone 100 mg Oral tab HS - PMHx: Bipolar disorder; insomnia; Seizure Disorder; - PSHx: Tonsillectomy; - Social history: Smoking status: Patient uses tobacco products, current every day smoker. No barriers to communication noted, The patient speaks fluent French. - Family history: Not pertinent. - : The pt / caregiver states he / she is not on anticoagulants. Home medication list is obtained from the patient. - Exposure Risk Screening:: None identified. Vital Signs: 11/18 06:58 BP 147 / 101; Pulse 86; Resp 20; Temp 96.7(T); Pulse Ox 96% on R/A; Weight 97.07 kg / dpm 214 lbs (R); Height 5 ft. 8 in. (172.72 cm) (R); Pain 8/10; 09:30 Pain 7/10; jc4 12:00 BP 144 / 87; Pulse 104; Resp 20; Temp 96.0(O); Pulse Ox 95% on R/A; Pain 7/10; jc4 15:52 BP 156 / 98; Pulse 82; Resp 16; Temp 97.2(O); Pulse Ox 95% on R/A; bcj 16:09 BP 146 / 82; pml 06:58 Body Mass Index 32.54 (97.07 kg, 172.72 cm) dpm MDM: 07:23 GI Cocktail - (Alum-Mag Hydroxide-Simeth 30 ml, Lidocaine 10 ml, Hyoscyamine 10 ml) PO fg once; Pre-mixed 50mL unit dose ordered. 07:23 oxyCODONE-acetaminophen 5 mg-325 mg 1 tabs PO once ordered. fg 07:23 Ondansetron 4 mg PO once ordered. fg 07:25 Ankle, Complete Ordered. EDMS 07:25 Knee, (AP\E\Lat) Ordered. EDMS 07:46 Financial registration complete. mm15 07:47 [facility] Payment Agreement was scanned into [employer] and attached to record. mm15 08:12 Consult: Welder Pipe Making ordered. dy 08:12 Misc. Nursing Order ordered. dy 08:23 REGULAR DIET PLASTIC BLAKELY+DIET ordered. EDMS 08:[address] - Divalproex Sodium Delayed Release Tablet 1000 mg PO once ordered. jc4 12:49 REGULAR DIET PLASTIC BLAKELY+DIET ordered. EDMS 15:41 Admit to IMHU: ordered. EDMS 15:43 [facility] Legal paperwork was scanned into [employer] and attached to record. jl 16:10 Consult: Welder Pipe Making complete. pml 11/19 09:25 T-Sheet-- Draft Copy was scanned into [employer] and attached to record. gb Administered Medications: 11/18 08:06 Drug: GI Cocktail - (Alum-Mag Hydroxide-Simeth Suspension 225 mg-200 mg-25 mg/5 mL 30 ja5 ml, Lidocaine Liquid 2 % 10 ml, Hyoscyamine Liquid 10 ml) Route: PO; 08:06 Drug: oxyCODONE-acetaminophen 1 tabs [oxycodone-acetaminophen 5 mg-325 mg tablet (1 ja5 tabs)] Route: PO; 09:30 Follow up: Pain 7/10 Adult jc4 08:06 Drug: Ondansetron 4 mg [ondansetron HCl 4 mg tablet (1 tabs)] Route: PO; ja5 09:30 Follow up: Denies nausea jc4 08:31 Drug: Depakote DR - Divalproex Sodium 1000 mg [divalproex 250 mg tablet,delayed release ja5 (4 tabs)] Route: PO; Signatures: Dispatcher [employer] EDMS Burt Hoover, PSA PSA Princess Dale, Reg Reg gb Aidan Gallegos, RN RN Teena Lin, HIEN RN jc4 Haydee CrenshawRN RN pml Guillermina Draper mm15 Hilary Adamson RN RN [email or web address] Shazia Kingsley MD MD fg Anderson, Jessica RN ja5 The chart was reviewed and I authenticate all verbal orders and agree with the evaluation and treatment provided.Attachments: 07:47 [facility] Payment Agreement mm15 11/19 09:25 T-Sheet-- Draft Copy gb Chart Complete MTDD
[2016-11-20 18:00] VITALS: BP 135/71
[2016-11-20] MEDS: traZODone 50 MG TAB PO SCH (20:23)
[2016-11-20] MEDS: IBUPROFEN 400 MG TAB PO PRN (20:24)
[2016-11-20] MEDS: QUEtiapine FUMARATE 100 MG TAB PO SCH (20:24)
[2016-11-21 06:48] VITALS: BP 152/88
[2016-11-21] MEDS: traMADol 50 MG TAB PO PRN ×2 (07:16→20:42)
[2016-11-21] MEDS: levETIRAcetam 250MG TABLET (KEPPRA) PO SCH ×3 (09:00→20:30)
[2016-11-21] MEDS: FLUoxetine 20 MG CAP PO SCH (09:12)
[2016-11-21] MEDS: DIVALPROEX 500MG *ER* TAB PO SCH ×2 (09:12→20:28)
[2016-11-21] MEDS: busPIRone 5 MG TAB PO SCH ×3 (09:13→20:27)
[2016-11-21] MEDS: NICOTINE 21MG/24HR 1 EA TRANSDERMAL TD SCH (09:14)
[2016-11-21] MEDS: IBUPROFEN 400 MG TAB PO PRN (09:15)
--- NOTE | 2016-11-21 13:44 | EDDOCDS ---
Nurse's Notes [facility] Name: Aramis Yang Age: 46 yrs Sex: Male : 1970 Arrival Date: 11/18/2016 Time: 06:[address] MD: Diagnosis: Major depressive disorder, recurrent, unspecified Presentation: 11/18 06:58 Presenting complaint: Patient states: "I took some pills and drank a lot." Transferred af2 from [place] for mental health eval after 6 hr observation. Mental Health Triage Level: Level 2: The patient was brought to the ED for evaluation because of a legal pickup order. Adult Sepsis Screening: The patient does not have new or worsening altered mentation. Patient's respiratory rate is less than 22. Systolic blood pressure is greater than 100. Patient has a qSOFA score of 0- Negative Sepsis Screen. Suicide/Homicide risk assessment- the patient denies having any suicidal and/or homicidal ideations and does not present with any other emotional, behavioral or mental health complaints. Status: Patient is not a media services director or dependent. Transition of care: patient was not received from another setting of care. 06:58 Acuity: JAMARI Level 3 af2 06:58 Method Of Arrival: Ambulance af2 Triage Assessment: 06:59 General: Appears in no apparent distress, Behavior is cooperative. Pain: Location: left af2 leg Pain currently is 6 out of 10 on a pain scale. Pt Declines HIV testing. The patient is triaged at the bedside. See Assessment in Nurses Notes section of ED record. Neurological: Level of Consciousness is awake, alert, obeys commands, Oriented to person, place, time. Cardiovascular: Heart tones S1 S2 present. Respiratory: Airway is patent Respiratory effort is even, unlabored. Derm: Skin is normal. Historical: - Allergies: No known drug Allergies; - Home Meds: 1. BuSpar 15 mg Oral tab 1 tab tid 2. Depakote 500 mg Oral TbEC 1 tab 2 tabs in am, 2 tabs pm 3. Seroquel 50 mg Oral tab 1 tab nightly 4. Prozac 40 mg Oral cap 1 cap once daily 5. trazodone 100 mg Oral tab HS - PMHx: Bipolar disorder; insomnia; Seizure Disorder; - PSHx: Tonsillectomy; - Social history: Smoking status: Patient uses tobacco products, current every day smoker. No barriers to communication noted, The patient speaks fluent Swazi. - Family history: Not pertinent. - : The pt / caregiver states he / she is not on anticoagulants. Home medication list is obtained from the patient. - Exposure Risk Screening:: None identified. Screenin:31 Screening information is obtained from the patient. Fall risk: No risks identified. ja5 Assistance ADL's: requires no assistance with activities of daily living. Abuse/DV Screen: The patient / caregiver reports he/she is: not in a situation that causes fear, pain or injury. Nutritional screening: On no prescribed diet. Advance Directives: There is an active Power of Short Piece Handler, Sally Yang, mother. home support is adequate. Assessment: 08:09 General: Appears uncomfortable, Behavior is cooperative. Pain: Location: left lateral ja5 ankle and left knee Pain currently is 8 out of 10 on a pain scale. Neurological: Level of Consciousness is awake, alert, Oriented to person, place, time. Cardiovascular: Capillary refill < 3 seconds Heart tones S1 S2 present. Respiratory: Airway is patent Respiratory effort is even, unlabored, Breath sounds are clear bilaterally. GI: Abdomen is obese, Bowel sounds present X 4 quads. Abd is soft X 4 quads Abd is non tender X 4 quads Reports nausea. Derm: Skin is pink, warm & dry. 10:00 Reassessment: Patient appears in no apparent distress at this time. Breakfast tray has jc4 been delivered. Security observation maintained. 11:01 General: Pt resting on stretcher. No distress noted at this time. Color pink, skin warm jc4 and dry. Respirations easy and full. Security observation continuing. 12:47 General: Appears in no apparent distress, Behavior is cooperative, pleasant. Pain: Pain jc4 currently is 7 out of 10 on a pain scale. Neurological: Level of Consciousness is awake, alert, Oriented to person, place, time. Respiratory: Airway is patent Respiratory effort is even, unlabored, Respiratory pattern is regular, symmetrical. Derm: Skin is pink, warm & dry. 14:40 Reassessment: Patient appears in no apparent distress at this time. jc4 15:30 General: Appears in no apparent distress, comfortable, Behavior is cooperative. Pain: bcj Denies pain. Derm: Skin is pink, warm & dry. Mental Health Eval: 07:38 Mental health consult is initiated at 07:20. Status: The patient is not a media services director or dependent. [facility] Behavioral Health: The patient is not an established patient of [facility] Behavioral Health. Referral Information: Evaluation referral is generated by Pt was transferred from [facility] after taking multiple drug overdose, consuming alcohol. Pt states at the time he "didn't want to wake up".. Pt states he was told he was going to be evicted from his apartment because he plays his music too loud.. The patient was referred for evaluation because . Subjective: The patients chief complaint is I got upset because my landlord wants to evict me. 08:29 Mental Health history: alcohol abuse, depression, Mental Health Admissions: Multiple at [facility] Current Outpatient Mental Health Services: Psychiatrist / Agency: Dr Anaya at [facility]. Therapist / Agency: Phoebe at [facility]. Current living environment is The patient currently lives alone. The patient is single. Patient presents to Emergency Department with the following symptoms within the past 2 weeks: alcohol abuse, depressed mood, feelings of helplessness/hopelessness, poor impulse control, suicidal ideation with attempt/gesture by pills. Mental status exam: Patients appearance is appropriate, Patient's behavior is cooperative, Speech is normal. Affect is appropriate. 09:31 Mental status exam: Mood is depressed. Hallucinations are denied. Appetite is normal. Memory is good. Energy level is hyperactive. Content of thought is normal. Thought process is intact. Cognitive level is oriented to person, place, time and situation Patient's insight is poor. Judgement is poor. Rapport with interviewer is good. Suicidal Ideation present with a plan to kill self by pills. Homicidal ideation is not present. Disposition: Medically cleared for disposition by Shazia Kingsley MD Psychiatric Consult is performed by phone with Dr Glenn Cox MD. [facility] Admission Criteria: The patient has had a suicide attempt in the recent past. pt took polysubstance overdose. The patient is experiencing suicidal ideation. The patient requires continuous observation and/or control to protect self, others or property. The patient's care requires a multi-modal treatment plan under close supervision and coordination due to the complexity and severity of the patient's symptoms. The patient requires administration and monitoring of psychoactive medications by skilled medical providers due to the side effects of the psychoactive medications or significant dosage adjustments. Legal Status: Patient's legal status will be Emergency admission: 9.39. DSM-V Differential Diagnosis: Bipolar I Disorder (F31.0) Current or most recent episode depressed, severe (F31.34). Narrative:. 12:19 Narrative: Pt states he took overdose of most of his medications because his landlord ac said he has to leave due to playing his music too loud. Pt states he thinks his landlord is trying to kick him out so he can charge higher rent for the summer. Pt reports compliance with medications, treatment. Pt reports sleep, appetite are unchanged. Pt denies drug use, states he drank vodka and orange juice last night and took the medications in order to kill himself. PT denies AH/VH, no delusions elicited. Pt states he has overdosed before on multiple occasions, at least once resulting in him being intubated for 5 days. Pt's insight, judgment are poor. Vital Signs: 06:58 BP 147 / 101; Pulse 86; Resp 20; Temp 96.7(T); Pulse Ox 96% on R/A; Weight 97.07 kg dpm (R); Height 5 ft. 8 in. (172.72 cm) (R); Pain 8/10; 09:30 Pain 7/10; jc4 12:00 BP 144 / 87; Pulse 104; Resp 20; Temp 96.0(O); Pulse Ox 95% on R/A; Pain 7/10; jc4 15:52 BP 156 / 98; Pulse 82; Resp 16; Temp 97.2(O); Pulse Ox 95% on R/A; bcj 16:09 BP 146 / 82; pml 06:58 Body Mass Index 32.54 (97.07 kg, 172.72 cm) dpm Vitals: 11:03 Log In Time N/A - ambulance arrival. jc4 ED Course: 06:56 Patient visited by Ronna Moreno Reg. hs2 06:56 Patient moved to Waiting hs2 06:56 Patient moved to [facility] hs2 06:58 Patient visited by Anant Mckee. dpm 06:59 Triage Initiated af2 06:59 Pt greeted and oriented to ED. Patient advised of names of staff involved in care, dpm location of call joseph, wait times and NPO status. Patient has correct armband on for positive identification. Placed in gown. Placed in psych safe attire. Security observing. Property removed, inventory done, secured in belongings bag- placed in locked locker. Placed in locker 2. Psych Safety Check: Location: Psych Room. Visual Assessment: Cooperative. 07:06 Ai Sam,RN is Primary Nurse. ja5 07:07 Patient visited by Hilary Adamson,HIEN. af2 07:15 Teena Moise, HIEN is Primary Nurse. jc4 07:15 Shazia Kingsley MD is Attending Physician. fg 07:15 Patient visited by Shazia Kingsley MD. fg 07:30 Patient visited by Anant Mckee. dpm 07:46 Patient visited by Anant Mckee. dpm 07:47 [facility] Payment Agreement was scanned into [employer] and attached to record. mm15 08:02 Patient visited by Anant Mckee. dpm 08:18 Patient visited by Anant Mckee. dpm 08:30 The patient / caregiver is instructed regarding the plan of care and ED course. jc4 08:31 Patient visited by Anant Mckee. dpm 08:50 Patient visited by Anant Mckee. dpm 08:59 Ankle, Complete Returned. EDMS 08:59 Knee, (AP\\E\\Lat) Returned. EDMS 09:02 Patient visited by Anant Mckee. dpm 09:18 Patient visited by Anant Mckee. dpm 09:32 Patient visited by Anant Mckee. dpm 09:46 Patient visited by Anant Mckee. dpm 10:02 Patient visited by Anant Mckee. dpm 10:16 Patient visited by Anant Mckee. dpm 10:32 Patient visited by Anant Mckee. dpm 10:48 Patient visited by Anant Mckee. dpm 11:09 Patient visited by Anant Mckee. dpm 11:23 Patient visited by Anant Mckee. dpm 11:47 Patient visited by Anant Mckee. dpm 12:01 Patient visited by Anant Mckee. dpm 12:17 Patient visited by Anant Mckee. dpm 12:36 Patient visited by Anant Mckee. dpm 12:46 Patient visited by Anant Mckee. dpm 13:03 Patient visited by Anant Mckee. dpm 13:18 Patient visited by Anant Mckee. dpm 13:32 Patient visited by Anant Mckee. dpm 13:48 Patient visited by Anant Mckee. dpm 14:17 Patient visited by Anant Mckee. dpm 14:57 Patient visited by Anant Mckee. dpm 15:17 Patient visited by Anant Mckee. dpm 15:30 Resting quietly. Awaiting bed assignment. bcj 15:30 Security observing. bcj 15:31 Patient visited by Dielep Paredes, HIEN. bcj 15:43 Patient visited by Anant Mckee. dpm 15:43 [facility] Legal paperwork was scanned into [employer] and attached to record. jl 15:53 Patient visited by Dileep Paredes, HIEN. bcj 15:56 Glenn Cox MD is Hospitalizing Provider. fg 16:00 Patient visited by Anant Mckee. dpm 16:03 No IV's were initiated during this patient's visit. No procedures done that require [facility] assistance. 16:05 Patient visited by Dileep Paredes, HIEN. bcj 16:10 Patient visited by Haydee Crenshaw RN. pml 11/19 09:25 T-Sheet-- Draft Copy was scanned into [employer] and attached to record. gb Administered Medications: 11/18 08:06 Drug: GI Cocktail - (Alum-Mag Hydroxide-Simeth Suspension 225 mg-200 mg-25 mg/5 mL 30 ja5 ml, Lidocaine Liquid 2 % 10 ml, Hyoscyamine Liquid 10 ml) Route: PO; 08:06 Drug: oxyCODONE-acetaminophen 1 tabs [oxycodone-acetaminophen 5 mg-325 mg tablet (1 ja5 tabs)] Route: PO; 09:30 Follow up: Pain 7/10 Adult jc4 08:06 Drug: Ondansetron 4 mg [ondansetron HCl 4 mg tablet (1 tabs)] Route: PO; ja5 09:30 Follow up: Denies nausea jc4 08:31 Drug: Depakote DR - Divalproex Sodium 1000 mg [divalproex 250 mg tablet,delayed release ja5 (4 tabs)] Route: PO; Attachments: 15:43 E Legal paperwork jl Intake: Order Results: Radiology Order: Ankle, Complete Test: Ankle, Complete REASON FOR EXAMINATION: diffuse ankle pain after fall; Clinical: Pain with recent trauma/fall.; ; Technique: AP, lateral, bilateral oblique views of the left ankle.; ; Findings:; Mild anterolateral soft tissue swelling is appreciated. Age-related degenerative; changes include subtle spurring at the medial malleolus and small calcaneal heal; spur. No acute fracture or dislocation. Ankle mortise intact.; ; Impression:; Soft tissue swelling and age-related degenerative changes.; No acute fracture or dislocation.; ; ; Signed by; Axel Yu MD 11/18/2016 08:13 A; Radiology Order: Knee, (AP\\E\\Lat) Test: Knee, (AP\\E\\Lat) REASON FOR EXAMINATION: bilateral knee pain after fall; Clinical: Trauma.; ; Technique: AP, lateral views of the left knee.; ; Findings: The osseous structures and joint spaces are intact and normal. There; is no evidence for acute fracture or dislocation. No joint effusion is; appreciated. Surrounding soft tissues are unremarkable. No subcutaneous; emphysema or radiodense foreign body.; ; Impression:; Normal examination. No acute fracture or dislocation.; ; ; Signed by; Axel Yu MD 11/18/2016 08:14 A; Outcome: 11/18 15:56 Decision to Hospitalize by Provider. fg 16:03 Discharge Assessment: patient administered narcotics - no. The following High Risk [facility] Discharge criteria are identified: None. Admitted to Psych accompanied by tech, via wheelchair. Condition: stable. No special radiology studies were completed. 16:10 Patient left the ED. pml Addendum: 11/21/2016 13:38 Narrative: Ins precert approved by [employer] (Medicare Complete - Policy number [id number]) ca for 5 days (11/18-11/22) with review tomorrow (11/22) with [employer] [phone], Ext [phone]. Auth number [id number]. Signatures: Dispatcher [employer] EDDileep Machado RN RN bcj Anderson, Cathy, PSA PSA ca Carter, Andy, PSA PSA ac LaFontaine, Jon, PSA PSA jl Princess Gordon, Reg Reg gb Suma, Teena, RN RN jc4 Haydee Crenshaw,RN RN Anant Barboza dpm, Marlynn mm15 Hilary Adamson RN RN ashlyn2 Shazia Kingsley MD MD fg Stanton, Hillary, Reg Reg hs2 Ai Sam,HIEN RN ja5 MTDD
--- NOTE | 2016-11-21 13:44 | EDDOCDS ---
Physician Documentation [facility] Name: Aramis Yang Age: 46 yrs Sex: Male : 1970 Arrival Date: 11/18/2016 Time: 06:55 Bed [facility] MD: Disposition: 11/18/16 15:56 Hospitalization ordered by Glenn Cox for Inpatient Admission. Preliminary diagnosis is Major depressive disorder, recurrent, unspecified. - Bed requested for Admit. - Status is Inpatient Admission. pml - Condition is Stable. - Problem is new. - Symptoms have worsened. Historical: - Allergies: No known drug Allergies; - Home Meds: 1. BuSpar 15 mg Oral tab 1 tab tid 2. Depakote 500 mg Oral TbEC 1 tab 2 tabs in am, 2 tabs pm 3. Seroquel 50 mg Oral tab 1 tab nightly 4. Prozac 40 mg Oral cap 1 cap once daily 5. trazodone 100 mg Oral tab HS - PMHx: Bipolar disorder; insomnia; Seizure Disorder; - PSHx: Tonsillectomy; - Social history: Smoking status: Patient uses tobacco products, current every day smoker. No barriers to communication noted, The patient speaks fluent Cuban. - Family history: Not pertinent. - : The pt / caregiver states he / she is not on anticoagulants. Home medication list is obtained from the patient. - Exposure Risk Screening:: None identified. Vital Signs: 11/18 06:58 BP 147 / 101; Pulse 86; Resp 20; Temp 96.7(T); Pulse Ox 96% on R/A; Weight 97.07 kg / dpm 214 lbs (R); Height 5 ft. 8 in. (172.72 cm) (R); Pain 8/10; 09:30 Pain 7/10; jc4 12:00 BP 144 / 87; Pulse 104; Resp 20; Temp 96.0(O); Pulse Ox 95% on R/A; Pain 7/10; jc4 15:52 BP 156 / 98; Pulse 82; Resp 16; Temp 97.2(O); Pulse Ox 95% on R/A; bcj 16:09 BP 146 / 82; pml 06:58 Body Mass Index 32.54 (97.07 kg, 172.72 cm) dpm MDM: 07:23 GI Cocktail - (Alum-Mag Hydroxide-Simeth 30 ml, Lidocaine 10 ml, Hyoscyamine 10 ml) PO fg once; Pre-mixed 50mL unit dose ordered. 07:23 oxyCODONE-acetaminophen 5 mg-325 mg 1 tabs PO once ordered. fg 07:23 Ondansetron 4 mg PO once ordered. fg 07:25 Ankle, Complete Ordered. EDMS 07:25 Knee, (AP\E\Lat) Ordered. EDMS 07:46 Financial registration complete. mm15 07:47 [facility] Payment Agreement was scanned into [employer] and attached to record. mm15 08:12 Consult: Fiscal Agent ordered. dy 08:12 Misc. Nursing Order ordered. dy 08:23 REGULAR DIET PLASTIC BLAKELY+DIET ordered. EDMS 08:[address] - Divalproex Sodium Delayed Release Tablet 1000 mg PO once ordered. jc4 12:49 REGULAR DIET PLASTIC BLAKELY+DIET ordered. EDMS 15:41 Admit to IMHU: ordered. EDMS 15:43 [facility] Legal paperwork was scanned into [employer] and attached to record. jl 16:10 Consult: Fiscal Agent complete. pml 11/19 09:25 T-Sheet-- Draft Copy was scanned into [employer] and attached to record. gb Administered Medications: 11/18 08:06 Drug: GI Cocktail - (Alum-Mag Hydroxide-Simeth Suspension 225 mg-200 mg-25 mg/5 mL 30 ja5 ml, Lidocaine Liquid 2 % 10 ml, Hyoscyamine Liquid 10 ml) Route: PO; 08:06 Drug: oxyCODONE-acetaminophen 1 tabs [oxycodone-acetaminophen 5 mg-325 mg tablet (1 ja5 tabs)] Route: PO; 09:30 Follow up: Pain 7/10 Adult jc4 08:06 Drug: Ondansetron 4 mg [ondansetron HCl 4 mg tablet (1 tabs)] Route: PO; ja5 09:30 Follow up: Denies nausea jc4 08:31 Drug: Depakote DR - Divalproex Sodium 1000 mg [divalproex 250 mg tablet,delayed release ja5 (4 tabs)] Route: PO; Signatures: Dispatcher [employer] EDMS Burt Hoover, PSA PSA Princess Dale, Reg Reg gb Aidan Gallegos, RN RN Teena Lin RN RN jc4 Haydee Crenshaw RN RN pml Guillermina Draper mm15 Hilary Adamson RN RN ashlyn2 Shazia Kingsley MD MD fg Anderson, Jessica RN ja5 The chart was reviewed and I authenticate all verbal orders and agree with the evaluation and treatment provided.Attachments: 07:47 [facility] Payment Agreement mm15 11/19 09:25 T-Sheet-- Draft Copy gb MTDD
--- NOTE | 2016-11-21 13:44 | EDDOCDS ---
Physician Documentation [facility] Name: Aramis Yang Age: 46 yrs Sex: Male : 1970 Arrival Date: 11/18/2016 Time: 06:55 Bed [facility] MD: Disposition: 11/18/16 15:56 Hospitalization ordered by Glenn Cox for Inpatient Admission. Preliminary diagnosis is Major depressive disorder, recurrent, unspecified. - Bed requested for Admit. - Status is Inpatient Admission. pml - Condition is Stable. - Problem is new. - Symptoms have worsened. Historical: - Allergies: No known drug Allergies; - Home Meds: 1. BuSpar 15 mg Oral tab 1 tab tid 2. Depakote 500 mg Oral TbEC 1 tab 2 tabs in am, 2 tabs pm 3. Seroquel 50 mg Oral tab 1 tab nightly 4. Prozac 40 mg Oral cap 1 cap once daily 5. trazodone 100 mg Oral tab HS - PMHx: Bipolar disorder; insomnia; Seizure Disorder; - PSHx: Tonsillectomy; - Social history: Smoking status: Patient uses tobacco products, current every day smoker. No barriers to communication noted, The patient speaks fluent Gambian. - Family history: Not pertinent. - : The pt / caregiver states he / she is not on anticoagulants. Home medication list is obtained from the patient. - Exposure Risk Screening:: None identified. Vital Signs: 11/18 06:58 BP 147 / 101; Pulse 86; Resp 20; Temp 96.7(T); Pulse Ox 96% on R/A; Weight 97.07 kg / dpm 214 lbs (R); Height 5 ft. 8 in. (172.72 cm) (R); Pain 8/10; 09:30 Pain 7/10; jc4 12:00 BP 144 / 87; Pulse 104; Resp 20; Temp 96.0(O); Pulse Ox 95% on R/A; Pain 7/10; jc4 15:52 BP 156 / 98; Pulse 82; Resp 16; Temp 97.2(O); Pulse Ox 95% on R/A; bcj 16:09 BP 146 / 82; pml 06:58 Body Mass Index 32.54 (97.07 kg, 172.72 cm) dpm MDM: 07:23 GI Cocktail - (Alum-Mag Hydroxide-Simeth 30 ml, Lidocaine 10 ml, Hyoscyamine 10 ml) PO fg once; Pre-mixed 50mL unit dose ordered. 07:23 oxyCODONE-acetaminophen 5 mg-325 mg 1 tabs PO once ordered. fg 07:23 Ondansetron 4 mg PO once ordered. fg 07:25 Ankle, Complete Ordered. EDMS 07:25 Knee, (AP\E\Lat) Ordered. EDMS 07:46 Financial registration complete. mm15 07:47 [facility] Payment Agreement was scanned into [employer] and attached to record. mm15 08:12 Consult: Head Men'S Golf Coach ordered. dy 08:12 Misc. Nursing Order ordered. dy 08:23 REGULAR DIET PLASTIC BLAKELY+DIET ordered. EDMS 08:[address] - Divalproex Sodium Delayed Release Tablet 1000 mg PO once ordered. jc4 12:49 REGULAR DIET PLASTIC BLAKELY+DIET ordered. EDMS 15:41 Admit to IMHU: ordered. EDMS 15:43 [facility]HE Legal paperwork was scanned into [employer] and attached to record. jl 16:10 Consult: Head Men'S Golf Coach complete. pml 11/19 09:25 T-Sheet-- Draft Copy was scanned into [employer] and attached to record. gb Administered Medications: 11/18 08:06 Drug: GI Cocktail - (Alum-Mag Hydroxide-Simeth Suspension 225 mg-200 mg-25 mg/5 mL 30 ja5 ml, Lidocaine Liquid 2 % 10 ml, Hyoscyamine Liquid 10 ml) Route: PO; 08:06 Drug: oxyCODONE-acetaminophen 1 tabs [oxycodone-acetaminophen 5 mg-325 mg tablet (1 ja5 tabs)] Route: PO; 09:30 Follow up: Pain 7/10 Adult jc4 08:06 Drug: Ondansetron 4 mg [ondansetron HCl 4 mg tablet (1 tabs)] Route: PO; ja5 09:30 Follow up: Denies nausea jc4 08:31 Drug: Depakote DR - Divalproex Sodium 1000 mg [divalproex 250 mg tablet,delayed release ja5 (4 tabs)] Route: PO; Signatures: Dispatcher [employer] EDMS Burt Hoover, PSA PSA Princess Dale, Reg Reg gb Aidan Gallegos, RN RN Teena Lin RN RN jc4 Haydee Crenshaw RN RN pml Guillermina Draper mm15 Hilary Adamson RN RN ashlyn2 Shazia Kingsley MD MD fg Anderson, Jessica RN ja5 The chart was reviewed and I authenticate all verbal orders and agree with the evaluation and treatment provided.Attachments: 07:47 [facility] Payment Agreement mm15 11/19 09:25 T-Sheet-- Draft Copy gb MTDD
--- NOTE | 2016-11-21 13:45 | EDDOCDS ---
Physician Documentation [facility] Name: Aramis Yang Age: 46 yrs Sex: Male : 1970 Arrival Date: 11/18/2016 Time: 06:55 Bed [facility] MD: Disposition: 11/18/16 15:56 Hospitalization ordered by Glenn Cox for Inpatient Admission. Preliminary diagnosis is Major depressive disorder, recurrent, unspecified. - Bed requested for Admit. - Status is Inpatient Admission. pml - Condition is Stable. - Problem is new. - Symptoms have worsened. Historical: - Allergies: No known drug Allergies; - Home Meds: 1. BuSpar 15 mg Oral tab 1 tab tid 2. Depakote 500 mg Oral TbEC 1 tab 2 tabs in am, 2 tabs pm 3. Seroquel 50 mg Oral tab 1 tab nightly 4. Prozac 40 mg Oral cap 1 cap once daily 5. trazodone 100 mg Oral tab HS - PMHx: Bipolar disorder; insomnia; Seizure Disorder; - PSHx: Tonsillectomy; - Social history: Smoking status: Patient uses tobacco products, current every day smoker. No barriers to communication noted, The patient speaks fluent Hungarian. - Family history: Not pertinent. - : The pt / caregiver states he / she is not on anticoagulants. Home medication list is obtained from the patient. - Exposure Risk Screening:: None identified. Vital Signs: 11/18 06:58 BP 147 / 101; Pulse 86; Resp 20; Temp 96.7(T); Pulse Ox 96% on R/A; Weight 97.07 kg / dpm 214 lbs (R); Height 5 ft. 8 in. (172.72 cm) (R); Pain 8/10; 09:30 Pain 7/10; jc4 12:00 BP 144 / 87; Pulse 104; Resp 20; Temp 96.0(O); Pulse Ox 95% on R/A; Pain 7/10; jc4 15:52 BP 156 / 98; Pulse 82; Resp 16; Temp 97.2(O); Pulse Ox 95% on R/A; bcj 16:09 BP 146 / 82; pml 06:58 Body Mass Index 32.54 (97.07 kg, 172.72 cm) dpm MDM: 07:23 GI Cocktail - (Alum-Mag Hydroxide-Simeth 30 ml, Lidocaine 10 ml, Hyoscyamine 10 ml) PO fg once; Pre-mixed 50mL unit dose ordered. 07:23 oxyCODONE-acetaminophen 5 mg-325 mg 1 tabs PO once ordered. fg 07:23 Ondansetron 4 mg PO once ordered. fg 07:25 Ankle, Complete Ordered. EDMS 07:25 Knee, (AP\E\Lat) Ordered. EDMS 07:46 Financial registration complete. mm15 07:47 [facility] Payment Agreement was scanned into Peer[employer] and attached to record. mm15 08:12 Consult: Shank Stapler ordered. dy 08:12 Misc. Nursing Order ordered. dy 08:23 REGULAR DIET PLASTIC BLAKELY+DIET ordered. EDMS 08:[address] - Divalproex Sodium Delayed Release Tablet 1000 mg PO once ordered. jc4 12:49 REGULAR DIET PLASTIC BLAKELY+DIET ordered. EDMS 15:41 Admit to IMHU: ordered. EDMS 15:43 [facility] Legal paperwork was scanned into [employer] and attached to record. jl 16:10 Consult: Shank Stapler complete. pml 11/19 09:25 T-Sheet-- Draft Copy was scanned into [employer] and attached to record. gb Administered Medications: 11/18 08:06 Drug: GI Cocktail - (Alum-Mag Hydroxide-Simeth Suspension 225 mg-200 mg-25 mg/5 mL 30 ja5 ml, Lidocaine Liquid 2 % 10 ml, Hyoscyamine Liquid 10 ml) Route: PO; 08:06 Drug: oxyCODONE-acetaminophen 1 tabs [oxycodone-acetaminophen 5 mg-325 mg tablet (1 ja5 tabs)] Route: PO; 09:30 Follow up: Pain 7/10 Adult jc4 08:06 Drug: Ondansetron 4 mg [ondansetron HCl 4 mg tablet (1 tabs)] Route: PO; ja5 09:30 Follow up: Denies nausea jc4 08:31 Drug: Depakote DR - Divalproex Sodium 1000 mg [divalproex 250 mg tablet,delayed release ja5 (4 tabs)] Route: PO; Signatures: Dispatcher MedHost EDMS Burt Hoover, PSA PSA Princess Dale, Reg Reg gb Aidan Gallegos, RN RN Teena Lin, HIEN RN jc4 Haydee CrenshawRN RN pml Guillermina Draper mm15 Hilary Adamson RN RN ashlyn2 Shazia Kingsley MD MD fg Anderson, Jessica RN ja5 The chart was reviewed and I authenticate all verbal orders and agree with the evaluation and treatment provided.Attachments: 07:47 [facility] Payment Agreement mm15 11/19 09:25 T-Sheet-- Draft Copy gb Chart Complete MTDD
--- NOTE | 2016-11-21 13:45 | EDDOCDS ---
Nurse's Notes [facility] Name: Aramis Yang Age: 46 yrs Sex: Male : 1970 Arrival Date: 11/18/2016 Time: 06:[address] MD: Diagnosis: Major depressive disorder, recurrent, unspecified Presentation: 11/18 06:58 Presenting complaint: Patient states: "I took some pills and drank a lot." Transferred af2 from [place] for mental health eval after 6 hr observation. Mental Health Triage Level: Level 2: The patient was brought to the ED for evaluation because of a legal pickup order. Adult Sepsis Screening: The patient does not have new or worsening altered mentation. Patient's respiratory rate is less than 22. Systolic blood pressure is greater than 100. Patient has a qSOFA score of 0- Negative Sepsis Screen. Suicide/Homicide risk assessment- the patient denies having any suicidal and/or homicidal ideations and does not present with any other emotional, behavioral or mental health complaints. Status: Patient is not a instructional media services technician or dependent. Transition of care: patient was not received from another setting of care. 06:58 Acuity: JAMARI Level 3 af2 06:58 Method Of Arrival: Ambulance af2 Triage Assessment: 06:59 General: Appears in no apparent distress, Behavior is cooperative. Pain: Location: left af2 leg Pain currently is 6 out of 10 on a pain scale. Pt Declines HIV testing. The patient is triaged at the bedside. See Assessment in Nurses Notes section of ED record. Neurological: Level of Consciousness is awake, alert, obeys commands, Oriented to person, place, time. Cardiovascular: Heart tones S1 S2 present. Respiratory: Airway is patent Respiratory effort is even, unlabored. Derm: Skin is normal. Historical: - Allergies: No known drug Allergies; - Home Meds: 1. BuSpar 15 mg Oral tab 1 tab tid 2. Depakote 500 mg Oral TbEC 1 tab 2 tabs in am, 2 tabs pm 3. Seroquel 50 mg Oral tab 1 tab nightly 4. Prozac 40 mg Oral cap 1 cap once daily 5. trazodone 100 mg Oral tab HS - PMHx: Bipolar disorder; insomnia; Seizure Disorder; - PSHx: Tonsillectomy; - Social history: Smoking status: Patient uses tobacco products, current every day smoker. No barriers to communication noted, The patient speaks fluent Puerto Rican. - Family history: Not pertinent. - : The pt / caregiver states he / she is not on anticoagulants. Home medication list is obtained from the patient. - Exposure Risk Screening:: None identified. Screenin:31 Screening information is obtained from the patient. Fall risk: No risks identified. ja5 Assistance ADL's: requires no assistance with activities of daily living. Abuse/DV Screen: The patient / caregiver reports he/she is: not in a situation that causes fear, pain or injury. Nutritional screening: On no prescribed diet. Advance Directives: There is an active Power of Claims Administrator, Sally Yang, mother. home support is adequate. Assessment: 08:09 General: Appears uncomfortable, Behavior is cooperative. Pain: Location: left lateral ja5 ankle and left knee Pain currently is 8 out of 10 on a pain scale. Neurological: Level of Consciousness is awake, alert, Oriented to person, place, time. Cardiovascular: Capillary refill < 3 seconds Heart tones S1 S2 present. Respiratory: Airway is patent Respiratory effort is even, unlabored, Breath sounds are clear bilaterally. GI: Abdomen is obese, Bowel sounds present X 4 quads. Abd is soft X 4 quads Abd is non tender X 4 quads Reports nausea. Derm: Skin is pink, warm & dry. 10:00 Reassessment: Patient appears in no apparent distress at this time. Breakfast tray has jc4 been delivered. Security observation maintained. 11:01 General: Pt resting on stretcher. No distress noted at this time. Color pink, skin warm jc4 and dry. Respirations easy and full. Security observation continuing. 12:47 General: Appears in no apparent distress, Behavior is cooperative, pleasant. Pain: Pain jc4 currently is 7 out of 10 on a pain scale. Neurological: Level of Consciousness is awake, alert, Oriented to person, place, time. Respiratory: Airway is patent Respiratory effort is even, unlabored, Respiratory pattern is regular, symmetrical. Derm: Skin is pink, warm & dry. 14:40 Reassessment: Patient appears in no apparent distress at this time. jc4 15:30 General: Appears in no apparent distress, comfortable, Behavior is cooperative. Pain: bcj Denies pain. Derm: Skin is pink, warm & dry. Mental Health Eval: 07:38 Mental health consult is initiated at 07:20. Status: The patient is not a instructional media services technician or dependent. [facility] Behavioral Health: The patient is not an established patient of [facility] Behavioral Health. Referral Information: Evaluation referral is generated by Pt was transferred from [facility] after taking multiple drug overdose, consuming alcohol. Pt states at the time he "didn't want to wake up".. Pt states he was told he was going to be evicted from his apartment because he plays his music too loud.. The patient was referred for evaluation because . Subjective: The patients chief complaint is I got upset because my landlord wants to evict me. 08:29 Mental Health history: alcohol abuse, depression, Mental Health Admissions: Multiple at [facility] Current Outpatient Mental Health Services: Psychiatrist / Agency: Dr Anaya at [facility]. Therapist / Agency: Phoebe at [facility]. Current living environment is The patient currently lives alone. The patient is single. Patient presents to Emergency Department with the following symptoms within the past 2 weeks: alcohol abuse, depressed mood, feelings of helplessness/hopelessness, poor impulse control, suicidal ideation with attempt/gesture by pills. Mental status exam: Patients appearance is appropriate, Patient's behavior is cooperative, Speech is normal. Affect is appropriate. 09:31 Mental status exam: Mood is depressed. Hallucinations are denied. Appetite is normal. Memory is good. Energy level is hyperactive. Content of thought is normal. Thought process is intact. Cognitive level is oriented to person, place, time and situation Patient's insight is poor. Judgement is poor. Rapport with interviewer is good. Suicidal Ideation present with a plan to kill self by pills. Homicidal ideation is not present. Disposition: Medically cleared for disposition by Shazia Kingsley MD Psychiatric Consult is performed by phone with Dr Glenn Cox MD. [facility] Admission Criteria: The patient has had a suicide attempt in the recent past. pt took polysubstance overdose. The patient is experiencing suicidal ideation. The patient requires continuous observation and/or control to protect self, others or property. The patient's care requires a multi-modal treatment plan under close supervision and coordination due to the complexity and severity of the patient's symptoms. The patient requires administration and monitoring of psychoactive medications by skilled medical providers due to the side effects of the psychoactive medications or significant dosage adjustments. Legal Status: Patient's legal status will be Emergency admission: 9.39. DSM-V Differential Diagnosis: Bipolar I Disorder (F31.0) Current or most recent episode depressed, severe (F31.34). Narrative:. 12:19 Narrative: Pt states he took overdose of most of his medications because his landlord ac said he has to leave due to playing his music too loud. Pt states he thinks his landlord is trying to kick him out so he can charge higher rent for the summer. Pt reports compliance with medications, treatment. Pt reports sleep, appetite are unchanged. Pt denies drug use, states he drank vodka and orange juice last night and took the medications in order to kill himself. PT denies AH/VH, no delusions elicited. Pt states he has overdosed before on multiple occasions, at least once resulting in him being intubated for 5 days. Pt's insight, judgment are poor. Vital Signs: 06:58 BP 147 / 101; Pulse 86; Resp 20; Temp 96.7(T); Pulse Ox 96% on R/A; Weight 97.07 kg dpm (R); Height 5 ft. 8 in. (172.72 cm) (R); Pain 8/10; 09:30 Pain 7/10; jc4 12:00 BP 144 / 87; Pulse 104; Resp 20; Temp 96.0(O); Pulse Ox 95% on R/A; Pain 7/10; jc4 15:52 BP 156 / 98; Pulse 82; Resp 16; Temp 97.2(O); Pulse Ox 95% on R/A; bcj 16:09 BP 146 / 82; pml 06:58 Body Mass Index 32.54 (97.07 kg, 172.72 cm) dpm Vitals: 11:03 Log In Time N/A - ambulance arrival. jc4 ED Course: 06:56 Patient visited by Ronna Moreno Reg. hs2 06:56 Patient moved to Waiting hs2 06:56 Patient moved to [facility] hs2 06:58 Patient visited by Anant Mckee. dpm 06:59 Triage Initiated af2 06:59 Pt greeted and oriented to ED. Patient advised of names of staff involved in care, dpm location of call joseph, wait times and NPO status. Patient has correct armband on for positive identification. Placed in gown. Placed in psych safe attire. Security observing. Property removed, inventory done, secured in belongings bag- placed in locked locker. Placed in locker 2. Psych Safety Check: Location: Psych Room. Visual Assessment: Cooperative. 07:06 Ai Sam,RN is Primary Nurse. ja5 07:07 Patient visited by Hilary Adamson,HIEN. af2 07:15 Teena Moise, HIEN is Primary Nurse. jc4 07:15 Shazia Kingsley MD is Attending Physician. fg 07:15 Patient visited by Shazia Kingsley MD. fg 07:30 Patient visited by Anant Mckee. dpm 07:46 Patient visited by Anant Mckee. dpm 07:47 [facility] Payment Agreement was scanned into AdMoment and attached to record. mm15 08:02 Patient visited by Anant Mckee. dpm 08:18 Patient visited by Anant Mckee. dpm 08:30 The patient / caregiver is instructed regarding the plan of care and ED course. jc4 08:31 Patient visited by Anant Mckee. dpm 08:50 Patient visited by Anant Mckee. dpm 08:59 Ankle, Complete Returned. EDMS 08:59 Knee, (AP\\E\\Lat) Returned. EDMS 09:02 Patient visited by Anant Mckee. dpm 09:18 Patient visited by Anant Mckee. dpm 09:32 Patient visited by Anant Mckee. dpm 09:46 Patient visited by Anant Mckee. dpm 10:02 Patient visited by Anant Mckee. dpm 10:16 Patient visited by Anant Mckee. dpm 10:32 Patient visited by Anant Mckee. dpm 10:48 Patient visited by Anant Mckee. dpm 11:09 Patient visited by Anant Mckee. dpm 11:23 Patient visited by Anant Mckee. dpm 11:47 Patient visited by Anant Mckee. dpm 12:01 Patient visited by Anant Mckee. dpm 12:17 Patient visited by Anant Mckee. dpm 12:36 Patient visited by Anant Mckee. dpm 12:46 Patient visited by Anant Mckee. dpm 13:03 Patient visited by Anant Mckee. dpm 13:18 Patient visited by Anant Mckee. dpm 13:32 Patient visited by Anant Mckee. dpm 13:48 Patient visited by Anant Mckee. dpm 14:17 Patient visited by Anant Mckee. dpm 14:57 Patient visited by Anant Mckee. dpm 15:17 Patient visited by Anant Mckee. dpm 15:30 Resting quietly. Awaiting bed assignment. bcj 15:30 Security observing. bcj 15:31 Patient visited by Dileep Paredes, HIEN. bcj 15:43 Patient visited by Anant Mckee. dpm 15:43 [facility] Legal paperwork was scanned into [employer] and attached to record. jl 15:53 Patient visited by Dileep Paredes, HIEN. bcj 15:56 Glenn Cox MD is Hospitalizing Provider. fg 16:00 Patient visited by Anant Mckee. dpm 16:03 No IV's were initiated during this patient's visit. No procedures done that require [facility] assistance. 16:05 Patient visited by Dileep Paredes, HIEN. bcj 16:10 Patient visited by Haydee Crenshaw RN. pml 11/19 09:25 T-Sheet-- Draft Copy was scanned into AdMoment and attached to record. gb Administered Medications: 11/18 08:06 Drug: GI Cocktail - (Alum-Mag Hydroxide-Simeth Suspension 225 mg-200 mg-25 mg/5 mL 30 ja5 ml, Lidocaine Liquid 2 % 10 ml, Hyoscyamine Liquid 10 ml) Route: PO; 08:06 Drug: oxyCODONE-acetaminophen 1 tabs [oxycodone-acetaminophen 5 mg-325 mg tablet (1 ja5 tabs)] Route: PO; 09:30 Follow up: Pain 7/10 Adult jc4 08:06 Drug: Ondansetron 4 mg [ondansetron HCl 4 mg tablet (1 tabs)] Route: PO; ja5 09:30 Follow up: Denies nausea jc4 08:31 Drug: Depakote DR - Divalproex Sodium 1000 mg [divalproex 250 mg tablet,delayed release ja5 (4 tabs)] Route: PO; Attachments: 15:43 E Legal paperwork jl Intake: Order Results: Radiology Order: Ankle, Complete Test: Ankle, Complete REASON FOR EXAMINATION: diffuse ankle pain after fall; Clinical: Pain with recent trauma/fall.; ; Technique: AP, lateral, bilateral oblique views of the left ankle.; ; Findings:; Mild anterolateral soft tissue swelling is appreciated. Age-related degenerative; changes include subtle spurring at the medial malleolus and small calcaneal heal; spur. No acute fracture or dislocation. Ankle mortise intact.; ; Impression:; Soft tissue swelling and age-related degenerative changes.; No acute fracture or dislocation.; ; ; Signed by; Axel Yu MD 11/18/2016 08:13 A; Radiology Order: Knee, (AP\\E\\Lat) Test: Knee, (AP\\E\\Lat) REASON FOR EXAMINATION: bilateral knee pain after fall; Clinical: Trauma.; ; Technique: AP, lateral views of the left knee.; ; Findings: The osseous structures and joint spaces are intact and normal. There; is no evidence for acute fracture or dislocation. No joint effusion is; appreciated. Surrounding soft tissues are unremarkable. No subcutaneous; emphysema or radiodense foreign body.; ; Impression:; Normal examination. No acute fracture or dislocation.; ; ; Signed by; Axel Yu MD 11/18/2016 08:14 A; Outcome: 11/18 15:56 Decision to Hospitalize by Provider. fg 16:03 Discharge Assessment: patient administered narcotics - no. The following High Risk [facility] Discharge criteria are identified: None. Admitted to Psych accompanied by tech, via wheelchair. Condition: stable. No special radiology studies were completed. 16:10 Patient left the ED. pml Addendum: 11/21/2016 13:38 Narrative: Ins precert approved by [employer] (Medicare Complete - Policy number [id number]) ca for 5 days (11/18-11/22) with review tomorrow (11/22) with [employer] [phone], Ext [phone]. Auth number [id number]. Signatures: Dispatcher MedHost EDDileep Machado RN RN bcj Anderson, Cathy, PSA PSA ca Carter, Andy, PSA PSA ac LaFontaine, Jon, PSA PSA jl Princess Gordon, Reg Reg gb Suma, Teena, RN RN jc4 Haydee Crenshaw,RN RN Anant Barboza dpm, Marlynn mm15 Hilary AdamsonRN RN ashlyn2 Shazia Kingsley MD MD Ronna Moreno, Reg Reg hs2 Ai Sam,RN RN ja5 Chart Complete MTDD
--- NOTE | 2016-11-21 13:45 | EDDOCDS ---
Physician Documentation [facility] Name: Aramis Yang Age: 46 yrs Sex: Male : 1970 Arrival Date: 11/18/2016 Time: 06:[address] [facility] MD: Disposition: 11/18/16 15:56 Hospitalization ordered by Glenn Cox for Inpatient Admission. Preliminary diagnosis is Major depressive disorder, recurrent, unspecified. - Bed requested for Admit. - Status is Inpatient Admission. pml - Condition is Stable. - Problem is new. - Symptoms have worsened. Historical: - Allergies: No known drug Allergies; - Home Meds: 1. BuSpar 15 mg Oral tab 1 tab tid 2. Depakote 500 mg Oral TbEC 1 tab 2 tabs in am, 2 tabs pm 3. Seroquel 50 mg Oral tab 1 tab nightly 4. Prozac 40 mg Oral cap 1 cap once daily 5. trazodone 100 mg Oral tab HS - PMHx: Bipolar disorder; insomnia; Seizure Disorder; - PSHx: Tonsillectomy; - Social history: Smoking status: Patient uses tobacco products, current every day smoker. No barriers to communication noted, The patient speaks fluent Divehi. - Family history: Not pertinent. - : The pt / caregiver states he / she is not on anticoagulants. Home medication list is obtained from the patient. - Exposure Risk Screening:: None identified. Vital Signs: 11/18 06:58 BP 147 / 101; Pulse 86; Resp 20; Temp 96.7(T); Pulse Ox 96% on R/A; Weight 97.07 kg / dpm 214 lbs (R); Height 5 ft. 8 in. (172.72 cm) (R); Pain 8/10; 09:30 Pain 7/10; jc4 12:00 BP 144 / 87; Pulse 104; Resp 20; Temp 96.0(O); Pulse Ox 95% on R/A; Pain 7/10; jc4 15:52 BP 156 / 98; Pulse 82; Resp 16; Temp 97.2(O); Pulse Ox 95% on R/A; bcj 16:09 BP 146 / 82; pml 06:58 Body Mass Index 32.54 (97.07 kg, 172.72 cm) dpm MDM: 07:23 GI Cocktail - (Alum-Mag Hydroxide-Simeth 30 ml, Lidocaine 10 ml, Hyoscyamine 10 ml) PO fg once; Pre-mixed 50mL unit dose ordered. 07:23 oxyCODONE-acetaminophen 5 mg-325 mg 1 tabs PO once ordered. fg 07:23 Ondansetron 4 mg PO once ordered. fg 07:25 Ankle, Complete Ordered. EDMS 07:25 Knee, (AP\E\Lat) Ordered. EDMS 07:46 Financial registration complete. mm15 07:47 [facility] Payment Agreement was scanned into [employer] and attached to record. mm15 08:12 Consult: Loan Processor ordered. dy 08:12 Misc. Nursing Order ordered. dy 08:23 REGULAR DIET PLASTIC BLAKELY+DIET ordered. EDMS 08:[address] - Divalproex Sodium Delayed Release Tablet 1000 mg PO once ordered. jc4 12:49 REGULAR DIET PLASTIC BLAKELY+DIET ordered. EDMS 15:41 Admit to IMHU: ordered. EDMS 15:43 [facility] Legal paperwork was scanned into [employer] and attached to record. jl 16:10 Consult: Loan Processor complete. pml 11/19 09:25 T-Sheet-- Draft Copy was scanned into [employer] and attached to record. gb Administered Medications: 11/18 08:06 Drug: GI Cocktail - (Alum-Mag Hydroxide-Simeth Suspension 225 mg-200 mg-25 mg/5 mL 30 ja5 ml, Lidocaine Liquid 2 % 10 ml, Hyoscyamine Liquid 10 ml) Route: PO; 08:06 Drug: oxyCODONE-acetaminophen 1 tabs [oxycodone-acetaminophen 5 mg-325 mg tablet (1 ja5 tabs)] Route: PO; 09:30 Follow up: Pain 7/10 Adult jc4 08:06 Drug: Ondansetron 4 mg [ondansetron HCl 4 mg tablet (1 tabs)] Route: PO; ja5 09:30 Follow up: Denies nausea jc4 08:31 Drug: Depakote DR - Divalproex Sodium 1000 mg [divalproex 250 mg tablet,delayed release ja5 (4 tabs)] Route: PO; Signatures: Dispatcher MedHost EDMS Burt Hoover, PSA PSA Princess Dale, Reg Reg gb Aidan Gallegos, RN RN Teena Lin, HIEN RN jc4 Haydee CrenshawRN RN pml Guillermina Draper mm15 Hilary Adamson RN RN ashlyn2 Shazia Kingsley MD MD fg Anderson, Jessica RN ja5 The chart was reviewed and I authenticate all verbal orders and agree with the evaluation and treatment provided.Attachments: 07:47 [facility] Payment Agreement mm15 11/19 09:25 T-Sheet-- Draft Copy gb Chart Complete MTDD
--- NOTE | 2016-11-21 17:09 | IPN ---
DATE: 11/20/2016 SUBJECTIVE: "I feel better. " OBJECTIVE: The patient is improving slowly. The patient states that he is feeling significantly better. He is denying suicidal or homicidal ideation during the interview. The patient is denying side effects from the medications. The patient reports good sleep with the help of the medication. MENTAL STATUS EXAMINATION: The patient is dressed in [facility]. The patient is cooperative during the exam, has fair eye contact. Speech is slow and monotone. Mood is depressed and anxious. Affect is restricted. No delusions or hallucinations. Short and long-term memory are fair. The patient is fully oriented. Associations are intact. Thinking is logical. Thought content is appropriate. The patient is denying suicidal or homicidal ideation, but he is minimizing somewhat the symptoms and events that led to his admission. Insight and judgment is poor. ASSESSMENT: 1. Bipolar disorder. 2. Alcohol dependency. 3. Polysubstance abuse. 4. Rule out mood disorder secondary to medical condition (traumatic brain injury/TBI). PLAN: 1. Continue with Prozac 40 mg by mouth every morning. 2. Continue with BuSpar 15 mg by mouth three times a day. 3. Continue with Depakote 1000 mg by mouth twice a day. 4. Continue with Seroquel 100 mg by mouth nightly. 5. Continue with trazodone 150 mg by mouth nightly. 6. Continue close observation. 7. Continue medication management, individual and group therapy.
[2016-11-21 18:00] VITALS: BP 169/97
[2016-11-21] MEDS: QUEtiapine FUMARATE 100 MG TAB PO SCH (20:28)
[2016-11-21] MEDS: traZODone 50 MG TAB PO SCH (20:28)
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
[2016-11-22 06:31] VITALS: BP 160/73
[2016-11-22] MEDS: FLUoxetine 20 MG CAP PO SCH (08:13)
[2016-11-22] MEDS: NICOTINE 21MG/24HR 1 EA TRANSDERMAL TD SCH (08:13)
[2016-11-22] MEDS: busPIRone 5 MG TAB PO SCH ×3 (08:14→20:24)
[2016-11-22] MEDS: DIVALPROEX 500MG *ER* TAB PO SCH ×2 (08:15→20:24)
[2016-11-22] MEDS: levETIRAcetam 250MG TABLET (KEPPRA) PO SCH ×2 (08:15→20:16)
--- NOTE | 2016-11-22 08:28 | IPN ---
DATE: 11/21/2016 HISTORY: 46-year-old male with history of bipolar disorder, traumatic brain injury (TBI) times three and alcohol dependency and polysubstance abuse. Patient was admitted after he took a multidrug overdose prior to admission. MEDICATIONS: - Prozac 40 mg by mouth every morning - BuSpar 50 mg by mouth three times a day - Depakote 1000 mg by mouth twice a day - Seroquel 100 mg by mouth nightly - trazodone 150 mg by mouth nightly SUBJECTIVE: "I feel a little better. " OBJECTIVE: Patient continues depressed with slow monotone speech, psychomotor retardation, restricted facial expression. Patient is denying auditory or visual hallucinations or delusions. Patient states that he made the mistake since he allowed this (friend to come to my house with alcohol). Patient is rafa for safety in the unit and denies suicidal or homicidal ideation during the interview. MENTAL STATUS EXAMINATION: Patient dressed in [facility]. Patient is cooperative, has fair eye contact. Speech is slow and monotone. Mood is depressed and anxious. Affect is restricted. No evidence of delusions or hallucinations. Memory is fair. Patient is fully oriented. Associations are intact. Thinking is logical. Thought content is appropriate. Patient is able to contract for safety and denies suicidal or homicidal ideation during the interview. Insight and judgment is limited. ASSESSMENT: 1. Bipolar disorder/traumatic brain injury. 2. Alcohol dependency. 3. Polysubstance abuse. 4. Depression. PLAN: 1. Continue with Prozac 40 mg by mouth every morning. 2. BuSpar 15 mg by mouth three times a day. 3. Depakote ER 1000 mg by mouth twice a day. 4. Seroquel 100 mg by mouth nightly. 5. Trazodone 150 mg by mouth nightly.
[2016-11-22] MEDS: traMADol 50 MG TAB PO PRN ×2 (08:43→20:24)
[2016-11-22 18:00] VITALS: BP 142/98
--- NOTE | 2016-11-22 18:09 | IPN ---
DATE: 11/22/2016 A 46-year-old male with a history of bipolar disorder, traumatic brain injury, alcohol dependency, and polysubstance abuse. Patient was admitted after he took a multi-drug overdose prior to admission. MEDICATIONS: - Prozac 20 mg every morning - BuSpar 50 mg by mouth three times a day. - Depakote 1000 mg by mouth twice a day - Seroquel 100 mg by mouth at bedtime - trazodone 150 mg by mouth at bedtime SUBJECTIVE: "I'm feeling better." OBJECTIVE: The patient exhibits fast speech and impulsive and expansive behavior. Patient is denying auditory or visual hallucinations. No evidence of delusions. No paranoia. Patient reports poor sleep. Patient is able to contract for safety during the interview and denies suicidal or homicidal ideation. MENTAL STATUS EXAMINATION: Patient dressed in [facility]. Patient is cooperative. Fair eye contact. Speech is fast. Patient is expansive. Mood is anxious. Very talkative. Becomes emotional and teary intermittently. No evidence of delusions or hallucinations. Memory is poor. Patient is fully oriented. Associations are intact. Thinking is logical. Thought content is appropriate. Patient is able to contract for safety and denies suicidal or homicidal ideation during the interview. Insight and judgment are limited. ASSESSMENT: 1. Bipolar disorder/traumatic brain injury. 2. Alcohol dependency. 3. Polysubstance abuse. 4. Depression. PLAN: 1. Decrease Prozac to 20 mg by mouth every morning. 2. BuSpar 50 mg by mouth three times a day. 3. Depakote ER 1000 mg by mouth twice a day. His valproic level is 77 with the above dose. 4. Seroquel 100 mg by mouth at bedtime. 5. Trazodone 150 mg by mouth at bedtime.
[2016-11-22] MEDS: traZODone 50 MG TAB PO SCH (20:23)
[2016-11-22] MEDS: QUEtiapine FUMARATE 100 MG TAB PO SCH (20:23)
[2016-11-22] MEDS ORDERED: QUEtiapine FUMARATE 100 MG TAB PO ONE (23:15)
[2016-11-23 06:46] VITALS: BP 142/84
[2016-11-23] MEDS: levETIRAcetam 250MG TABLET (KEPPRA) PO SCH ×3 (09:00→20:36)
[2016-11-23] MEDS: NICOTINE 21MG/24HR 1 EA TRANSDERMAL TD SCH (09:33)
[2016-11-23] MEDS: busPIRone 5 MG TAB PO SCH ×3 (09:34→20:31)
[2016-11-23] MEDS: FLUoxetine 20 MG CAP PO SCH (09:34)
[2016-11-23] MEDS: DIVALPROEX 500MG *ER* TAB PO SCH ×2 (09:34→20:31)
[2016-11-23] MEDS: traMADol 50 MG TAB PO PRN ×2 (09:36→20:32)
--- NOTE | 2016-11-23 15:07 | IPN ---
DATE: 11/23/2016 46-year-old male who was admitted after he took a multi drug overdose prior to admission. The patient was also intoxicated with alcohol. MEDICATIONS: - Prozac 20 mg in the morning - BuSpar 15 mg by mouth three times a day - Depakote 1000 mg by mouth twice a day - Seroquel 100 mg by mouth at night - trazodone 150 mg by mouth at night SUBJECTIVE: "I am feeling much better." OBJECTIVE: The patient is improved from admission. No longer depressed and says that he would like to continue his treatment in an outpatient basis. The patient is interacting well with other patients and staff. There is no evidence of psychomotor retardation. The patient is able to smile and joke with other patients. The patient denies suicidal or homicidal ideation. There is no evidence of psychotic symptoms. The patient is in [facility]. The patient is cooperative, has fair eye contact. Speech is normal in rate, volume, articulation and is spontaneous. No evidence of delusions or hallucinations. Memory is fair. The patient is fully oriented. Associations are intact. Thinking is logical. Thought content is appropriate. The patient is able to contract for safety. He denies suicidal or homicidal ideation. Insight and judgment are fair. ASSESSMENT: 1. Bipolar disorder. 2. Traumatic brain injury. 3. Alcohol dependency. 4. Polysubstance abuse. PLAN: 1. Continue with Prozac 20 mg by mouth in the morning. 2. BuSpar 15 mg by mouth three times a day. 3. Depakote ER 1000 mg by mouth twice a day. 4. Trazodone 50 mg by mouth at night. 5. The patient continues improving. We will discharge tomorrow.
[2016-11-23 18:00] VITALS: BP 133/83
[2016-11-23] MEDS ORDERED: traZODone 50 MG TAB PO SCH (21:00)
[2016-11-23] MEDS ORDERED: QUEtiapine FUMARATE 200 MG TAB PO SCH (21:00)
[2016-11-24 06:47] VITALS: BP 155/93
[2016-11-24] MEDS ORDERED: NICO21PAT TD (08:26)
[2016-11-24] MEDS: levETIRAcetam 250MG TABLET (KEPPRA) PO SCH (09:00)
[2016-11-24] MEDS: DIVALPROEX 500MG *ER* TAB PO SCH (09:22)
[2016-11-24] MEDS: busPIRone 5 MG TAB PO SCH (09:22)
[2016-11-24] MEDS: NICOTINE 21MG/24HR 1 EA TRANSDERMAL TD SCH (09:22)
[2016-11-24] MEDS: FLUoxetine 20 MG CAP PO SCH (09:22)
[2016-11-24] MEDS: traMADol 50 MG TAB PO PRN (09:23)
[2016-11-24] MEDS ORDERED: TRAZO50TA PO (10:28)
[2016-11-24] MEDS ORDERED: QUET1TAB9 PO (10:28)
[2016-11-24] MEDS ORDERED: FLUO20CA9 PO (10:28)
[2016-11-24] MEDS ORDERED: BUSP5TA PO (10:28)
[2016-11-24] MEDS ORDERED: KEPP250T5 PO (10:28)
[2016-11-24] MEDS ORDERED: DEPA500T2 PO (10:28)
--- NOTE | 2016-11-24 15:36 | MHDS ---
DATE OF ADMISSION: 11/18/2016 DATE OF DISCHARGE: 11/24/2016 LEGAL STATUS AT ADMISSION: 9.39 legal status. HISTORY OF PRESENT ILLNESS: 46-year-old male with history of bipolar disorder and traumatic brain injury (TBI) admitted to our unit on a 9.39 legal status. According to the record, patient was transferred from [facility] after he took a multiple drug overdose and also was consuming alcohol. The patient was making statements such as "I didn't want to wake up." He was told that he is being evicted from his apartment. He lives alone and is . Patient has a past history of overdoses. In one of them he ended up intubated. During the interview today, patient feels sorry that he took the overdose. Patient reported feeling depressed, hopeless, feeling lonely. The patient was somewhat minimizing the amount of alcohol he is using and said that this is the first time after "many months." He said that he had dinner with a girl and they started drinking and he ended up overdosing. During the interview today, patient does not have auditory or visual hallucinations or delusions. Patient is cooperative during the exam and, again, minimizing the events that led to his admission. LABORATORY DATA: Labs at admission were not drawn since patient was worked up medically at [facility]. On 11/20/2016, showed a BUN of 20, calcium of 8.3, and total protein of 6, the rest within normal limits. His valproic level on 11/20/2016 was 77. HOSPITAL COURSE: After the first evaluation, patient was started on his previous to admission medications since he said that his outpatient psychiatrist has been slowly changing his medication and he was doing "really good." He was started on Seroquel 100 mg by mouth nightly, trazodone 150 mg by mouth nightly, Prozac 40 mg by mouth every morning, BuSpar 15 mg by mouth three times a day, Depakote ER 1000 mg by mouth twice a day with a valproic level of 77. After 2 days in the unit, patient looked somewhat hypomanic with some degree of impulsivity. Therefore, I discussed the treatment plan with the patient and decided to decrease his Prozac to 20 mg by mouth every morning and trazodone to 50 mg by mouth nightly and increase his Seroquel to 200 mg by mouth nightly. With this medication, patient was stabilized. Patient's mood improved rather quickly and by 11/24/2016, patient is in a stable condition. Patient is denying suicidal or homicidal ideation. There is no evidence of psychotic symptoms. No auditory or visual hallucinations or delusions. Patient was interacting very well with peers and staff. He was smiling and joking in the lunchroom. Patient stated that he is motivated to continue his treatment as outpatient and he has decided to stop using alcohol. We discussed that issue and the fact that with his bipolar illness it is going to be difficult to manage in the context of the alcohol dependency. MEDICATIONS AT DISCHARGE: - Prozac 20 mg by mouth every morning - trazodone 50 mg by mouth nightly - Seroquel 200 mg by mouth nightly - BuSpar 15 mg by mouth three times a day - Depakote ER 1000 mg by mouth twice a day MENTAL STATUS EXAMINATION AT DISCHARGE: Patient is dressed in casual clothes. Patient is calm and cooperative. His speech is clear, coherent, with normal rate and is spontaneous. Patient has good eye contact. Mood is euthymic. Affect is appropriate and congruent with mood. Patient is oriented to time, place, person, and situation. Maintains attention and concentration correctly. Instant recall, recent and remote memory are intact. Thought processes are coherent, logical, and goal-directed. Patient does not have auditory or visual hallucinations. Patient does not have paranoid, persecutory, somatic, grandiose, or sabianist delusions. Patient is denying suicidal or homicidal ideation. Judgment and insight are fair. DISCHARGE DIAGNOSES: AXIS I: Bipolar disorder. Traumatic brain injury (TBI). Alcohol dependency. Polysubstance abuse. AXIS II: Deferred. AXIS III: Seizure disorder. Alcohol intoxication. INSTRUCTIONS TO THE PATIENT: Patient is to continue taking his medications as prescribed at followup appointments. He is advised to maintain absolute sobriety from drugs and alcohol. Patient has scheduled appointments for psychotropic medication management, individual psychotherapy, and primary care provider (PCP) at discharge.
== END 2016-11-24 13:00 | disposition home or self-care (01) | DRG 753 ==
LOC: M ED 06:55 → M PSY 16:19
PROVIDERS: ADMIT Psychiatry & Neurology Psychiatry; ATTEND Psychiatry & Neurology Psychiatry
DX: F31.9 Bipolar disorder, unspecified (principal); F10.20 Alcohol dependence, uncomplicated; Z87.820 Personal history of traumatic brain injury; G40.909 Epilepsy, unspecified, not intractable, without status epilepticus; F12.10 Cannabis abuse, uncomplicated; M25.572 Pain in left ankle and joints of left foot; F14.10 Cocaine abuse, uncomplicated; F06.30 Mood disorder due to known physiological condition, unspecified; Z81.8 Family history of other mental and behavioral disorders; Z81.1 Family history of alcohol abuse and dependence; Z91.5 Personal history of self-harm; Z87.891 Personal history of nicotine dependence; Z79.891 Long term (current) use of opiate analgesic; Z79.899 Other long term (current) drug therapy

== ENCOUNTER 2016-11-30 22:10 | Inpatient (IN) | payer MEDICARE, OTHER ==
[~2016-11-30] VITALS: Ht 172.7 cm; Wt 105.1 kg
[2016-11-30] MEDS: QUEtiapine FUMARATE 200 MG TAB PO SCH (21:00)
[~2016-11-30 22:10] MED LIST changes: +BUSP5TA PO; +KEPP250T5 PO; +KEPP500T6 PO; +NICO21PAT TD; +QUET1TAB9 PO; +SERO1TAB PO; +TRAZ150T14 PO; +ZALE10CA PO
[2016-12-01 00:03] LABS: MEAN CORPUSCULAR HEMOGLOBIN 30.5 pg (27.0-33.0); MEAN CORPUSCULAR HGB CONC 34.9 g/dl (32.0-36.5); MEAN CORPUSCULAR VOLUME 87.4 fl (80.0-96.0); RED CELL DISTRIBUTION WIDTH 12.8 % (11.5-14.5); WHITE BLOOD COUNT 6.8 K/mm3 (4.0-10.0)
[2016-12-01 00:24] LABS: CONTROL LINE INT CTR LINE PRESENT; METHADONE URINE NEGATIVE (NEGATIVE); TRICYCLIC ANTIDEPRESS URINE NEGATIVE (NEGATIVE)
[2016-12-01 00:35] LABS: ALBUMIN 3.4 GM/DL (3.2-5.2); ALBUMIN/GLOBULIN RATIO 1.06 (1.00-1.93); ALKALINE PHOSPHATASE 87 U/L (45-117); ALT/SGPT 29 U/L (12-78); ANION GAP 9 MEQ/L (8-16); AST/SGOT 17 U/L (15-37); BILIRUBIN,DIRECT < 0.1 MG/DL (0.0-0.2); BILIRUBIN,TOTAL 0.1 MG/DL (0.2-1.0); BLOOD UREA NITROGEN 15 MG/DL (7-18); CALCIUM LEVEL 8.8 MG/DL (8.5-10.1); CARBON DIOXIDE LEVEL 27 MEQ/L (21-32); CHLORIDE LEVEL 103 MEQ/L (98-107); CREATININE FOR GFR 0.92 MG/DL (0.70-1.30); GLOMERULAR FILTRATION RATE > 60.0 (>60); GLUCOSE, FASTING 90 MG/DL (70-105); POTASSIUM SERUM 4.1 MEQ/L (3.5-5.1); SODIUM LEVEL 139 MEQ/L (136-145); TOTAL PROTEIN 6.6 GM/DL (6.4-8.2)
[2016-12-01] MEDS ORDERED: MOM 30ML SUSPENSION UDC PO PRN (02:15)
[2016-12-01] MEDS ORDERED: MAALOX 30 ML SUSP *UDC PO PRN (02:15)
[2016-12-01] MEDS ORDERED: traZODone 50 MG TAB PO PRN (02:15)
[2016-12-01] MEDS ORDERED: DIVA500T9 PO (02:46)
[2016-12-01] MEDS ORDERED: TRAZ150T14 PO (02:46)
[2016-12-01] MEDS ORDERED: ZALE10CA PO (02:46)
[2016-12-01] MEDS ORDERED: HYDR-4274 PO (02:46)
[2016-12-01] MEDS ORDERED: QUET1TAB8 PO (02:46)
[2016-12-01] MEDS ORDERED: TRAM50TA2 PO (02:46)
[2016-12-01] MEDS ORDERED: FLUO40CA PO (02:46)
[2016-12-01] MEDS ORDERED: BUSP15TA47 PO (02:46)
[2016-12-01 03:34] VITALS: BP 151/90
[2016-12-01] MEDS: traMADol 50 MG TAB PO SCH ×3 (06:19→21:06)
[2016-12-01] MEDS: levETIRAcetam 250MG TABLET (KEPPRA) PO SCH ×2 (09:00→21:00)
[2016-12-01] MEDS ORDERED: FLUoxetine 20 MG CAP PO SCH (09:00)
[2016-12-01] MEDS: NICOTINE 21MG/24HR 1 EA TRANSDERMAL TD SCH (09:29)
[2016-12-01] MEDS: DIVALPROEX 500MG *ER* TAB PO SCH ×2 (09:29→21:06)
[2016-12-01] MEDS: busPIRone 5 MG TAB PO SCH ×3 (09:29→21:06)
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
[2016-12-01 18:00] VITALS: BP 144/80
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
[2016-12-01] MEDS: QUEtiapine FUMARATE 200 MG TAB PO SCH ×2 (21:00→22:07)
--- NOTE | 2016-12-01 21:55 | ECGEPIP ---
Stationary ECG Study [facility] Test Date: 2016-12-01 Pat Name: KRISHNA CARPENTER Department: Room: [place] [address] Gender: M [employer] T[employer]: : 1970 Requested By: Linnea Vasquez Order Number: [id number] Reading MD: Aidan Glover Measurements Intervals [place] Rate: 84 P: 53 CA: 150 QRS: 11 QRSD: 85 T: 43 QT: 352 QTc: 417 Interpretive Statements SINUS RHYTHM Compared to prior tracing of 06-16-16 Electronically Signed On 12-01-2016 21:54:47 EST by Aidan Glover
[2016-12-01] MEDS ORDERED: traZODone 50 MG TAB PO ONE (22:30)
[2016-12-02] MEDS: traMADol 50 MG TAB PO SCH ×3 (06:11→21:11)
[2016-12-02 07:12] VITALS: BP 132/92
[2016-12-02] MEDS: busPIRone 5 MG TAB PO SCH ×3 (08:00→21:10)
[2016-12-02] MEDS: levETIRAcetam 250MG TABLET (KEPPRA) PO SCH ×2 (08:00→21:00)
[2016-12-02] MEDS: DIVALPROEX 500MG *ER* TAB PO SCH ×2 (08:00→21:09)
[2016-12-02] MEDS: NICOTINE 21MG/24HR 1 EA TRANSDERMAL TD SCH (08:00)
[2016-12-02] MEDS ORDERED: FLUoxetine 10 MG CAP PO SCH (09:00)
[2016-12-02] MEDS ORDERED: QUEtiapine FUMARATE 12.5 MG HALF-TAB PO ONE (14:30)
[2016-12-02 18:00] VITALS: BP 140/90
[2016-12-02] MEDS: chlorproMAZINE 25 MG TAB (Q0161) PO SCH (21:10)
[2016-12-02] MEDS: QUEtiapine FUMARATE 100 MG TAB PO SCH (21:10)
--- NOTE | 2016-12-02 21:23 | IPN ---
DATE: 12/02/2016 46-year-old male with history of bipolar disorder and traumatic brain injury (TBI), and also alcohol dependency, admitted with symptoms compatible with bipolar mixed episode. The patient was having suicidal ideation at that point. MEDICATIONS: - Seroquel 100 mg by mouth nightly - BuSpar 15 mg by mouth three times a day - Depakote ER 1000 mg by mouth twice a day - Prozac 10 mg by mouth every morning SUBJECTIVE: "I could not sleep last night. I have restless leg syndrome. I am manic." OBJECTIVE: Patient continues to display symptoms of hypomania and also depression compatible with a mixed episode. Patient was taking Prozac 40 mg daily and trazodone 150 mg by mouth nightly on an outpatient basis. Antidepressants were hyper-activating the patient. We discussed the treatment plan and agreed to taper down and discontinue antidepressants, at least momentarily. Patient reports insomnia. Continues to display manic behavior, although he is motivated for treatment. No evidence of auditory or visual hallucinations or delusions. Patient reports intermittent episodes of high anxiety throughout the day. MENTAL STATUS EXAMINATION: Patient is dressed in [facility]. Patient is cooperative during exam. His speech is pressured. Mood is elated but also depressed. Affect is labile. No delusions or hallucinations. Memory is fair. Patient is able to contract for safety and denies suicidal or homicidal ideation. Insight and judgment is limited. ASSESSMENT: 1. Bipolar disorder. 2. Traumatic brain injury (TBI). 3. Alcohol dependency. PLAN: 1. Decrease Seroquel to 100 mg by mouth nightly. 2. Thorazine 100 mg by mouth nightly. 3. Seroquel 12.5 mg by mouth three times a day as needed for anxiety/agitation. 4. BuSpar 15 mg by mouth three times a day. 5. Depakote ER 1000 mg by mouth twice a day. 6. Continue close observation.
[2016-12-03] MEDS: traMADol 50 MG TAB PO SCH ×3 (06:11→22:00)
[2016-12-03 06:40] VITALS: BP 138/79
[2016-12-03] MEDS: busPIRone 5 MG TAB PO SCH ×3 (08:29→20:30)
[2016-12-03] MEDS: levETIRAcetam 250MG TABLET (KEPPRA) PO SCH ×2 (08:30→20:30)
[2016-12-03] MEDS: NICOTINE 21MG/24HR 1 EA TRANSDERMAL TD SCH (08:30)
[2016-12-03] MEDS: QUEtiapine FUMARATE 12.5 MG HALF-TAB PO PRN (08:30)
[2016-12-03] MEDS: DIVALPROEX 500MG *ER* TAB PO SCH ×2 (08:30→20:30)
[2016-12-03 18:00] VITALS: BP 151/82
[2016-12-03] MEDS: QUEtiapine FUMARATE 100 MG TAB PO SCH (20:30)
[2016-12-03] MEDS: chlorproMAZINE 25 MG TAB (Q0161) PO SCH (20:30)
[2016-12-04] MEDS: traMADol 50 MG TAB PO SCH ×3 (06:22→22:08)
[2016-12-04 06:49] VITALS: BP 152/84
[2016-12-04] MEDS: DIVALPROEX 500MG *ER* TAB PO SCH ×2 (08:17→20:43)
[2016-12-04] MEDS: busPIRone 5 MG TAB PO SCH ×3 (08:17→20:42)
[2016-12-04] MEDS: NICOTINE 21MG/24HR 1 EA TRANSDERMAL TD SCH (08:17)
[2016-12-04] MEDS: levETIRAcetam 250MG TABLET (KEPPRA) PO SCH ×2 (08:18→20:43)
--- NOTE | 2016-12-04 08:48 | IPN ---
DATE: 12/03/2016 46-year-old male with history of bipolar disorder, traumatic brain injury (TBI), and alcohol dependency admitted with symptoms compatible with bipolar mixed episode. Patient was having suicidal ideations before admission. MEDICATIONS: - Seroquel 100 mg by mouth nightly - BuSpar 15 mg by mouth three times a day - Depakote ER 1000 mg by mouth twice a day - Thorazine 100 mg by mouth nightly - Seroquel 12.5 mg by mouth three times a day as needed for anxiety/agitation SUBJECTIVE: "I slept much better last night with Thorazine." OBJECTIVE: Patient continues displaying hypomanic behavior. He is hyperactive, impulsive, with pressured speech, but his behavior is in well control and he is compliant with the medication. Patient is requesting to have his Depakote decreased. MENTAL STATUS EXAMINATION: Patient is dressed in [facility]. Patient is cooperative during exam, has fair eye contact. Speech is pressured. Mood is elated. Affect is expansive and congruent with mood. No delusions or hallucinations. Memory, attention, and concentration are affected by his lupillo/hypomania. Patient is able to contract for safety and denies suicidal or homicidal ideation during the interview. Insight and judgment is limited. ASSESSMENT: 1. Bipolar disorder. 2. Traumatic brain injury (TBI). 3. Alcohol dependency. PLAN: 1. Continue with Seroquel 12.5 mg by mouth three times a day as needed for anxiety plus 100 mg by mouth nightly. 2. Thorazine 100 mg by mouth nightly. 3. BuSpar 15 mg by mouth three times a day. 4. Depakote ER 1000 mg by mouth twice a day. His Depakote level is 62.4 with his dosage. 5. Continue close observation. 6. Continue medication management, individual, and group therapy.
[2016-12-04] MEDS: QUEtiapine FUMARATE 12.5 MG HALF-TAB PO PRN (11:57)
[2016-12-04 18:00] VITALS: BP 140/90
[2016-12-04] MEDS: chlorproMAZINE 25 MG TAB (Q0161) PO SCH (20:42)
[2016-12-04] MEDS: QUEtiapine FUMARATE 100 MG TAB PO SCH (20:42)
[2016-12-05] MEDS: traMADol 50 MG TAB PO SCH ×3 (06:07→20:08)
[2016-12-05 06:24] VITALS: BP 138/90
[2016-12-05] MEDS: levETIRAcetam 250MG TABLET (KEPPRA) PO SCH ×2 (09:00→20:07)
[2016-12-05] MEDS: DIVALPROEX 500MG *ER* TAB PO SCH ×2 (09:10→20:07)
[2016-12-05] MEDS: NICOTINE 21MG/24HR 1 EA TRANSDERMAL TD SCH (09:10)
[2016-12-05] MEDS: busPIRone 5 MG TAB PO SCH (09:10)
[2016-12-05] MEDS: QUEtiapine FUMARATE 12.5 MG HALF-TAB PO PRN (13:52)
--- NOTE | 2016-12-05 17:41 | IPN ---
DATE: 12/04/2016 46-year-old male with history of bipolar disorder, traumatic brain injury (TBI), and alcohol dependency admitted with symptoms compatible with bipolar disorder mixed episode. Patient was having suicidal ideations prior to being admitted. MEDICATIONS: - Seroquel 100 mg by mouth nightly - BuSpar 15 mg by mouth three times a day - Depakote ER 1000 mg by mouth twice a day - Thorazine 100 mg by mouth nightly - Seroquel 12.5 mg by mouth three times a day as needed for anxiety and agitation SUBJECTIVE: "I'm sleeping great with the Thorazine." OBJECTIVE: Patient continues displaying hypomanic behavior with fast, pressured speech, hyperactivity, and jumping from subject to subject, although he is interacting better with other patients and staff. His behavior is under control. There is no agitation. Patient appears to be more insightful. As above, patient is sleeping better with the Thorazine. I gave the patient information about Thorazine and told him that this medication needs to be taken as prescribed and never more than the physician tells him to take. MENTAL STATUS EXAMINATION: Patient is dressed in [facility]. Patient is cooperative during exam, has fair eye contact. Speech is pressured. Mood is expansive, anxious. Affect is congruent with mood. No delusions or hallucinations. Memory, attention, and concentration are affected by his hypomanic behavior. Patient is able to contract for safety and denies suicidal or homicidal ideation. Insight and judgment is limited. ASSESSMENT: 1. Bipolar disorder. 2. Traumatic brain injury. 3. Alcohol dependency. PLAN: 1. Continue with Seroquel 12.5 mg by mouth three times a day plus 100 mg by mouth nightly. 2. Continue Thorazine 100 mg by mouth nightly. 3. Continue BuSpar 15 mg by mouth three times a day. 4. Continue Depakote ER 1000 mg by mouth twice a day. 5. Continue close observation. 6. Continue medication management, individual, and group therapy.
[2016-12-05 18:00] VITALS: BP 138/84
[2016-12-05] MEDS: chlorproMAZINE 25 MG TAB (Q0161) PO SCH (20:06)
[2016-12-05] MEDS: QUEtiapine FUMARATE 100 MG TAB PO SCH (20:06)
[2016-12-05] MEDS: DIVALPROEX 250MG *ER* TAB PO SCH (20:07)
[2016-12-06] MEDS: traMADol 50 MG TAB PO SCH ×3 (06:07→22:00)
[2016-12-06 06:31] VITALS: BP 141/98
[2016-12-06] MEDS: NICOTINE 21MG/24HR 1 EA TRANSDERMAL TD SCH (08:11)
[2016-12-06] MEDS: ACETAMINOPHEN TAB 650MG DOSE (2X325MG) PO PRN (08:12)
[2016-12-06] MEDS: DIVALPROEX 500MG *ER* TAB PO SCH ×2 (08:12→20:10)
[2016-12-06] MEDS: DIVALPROEX 250MG *ER* TAB PO SCH ×2 (08:12→20:11)
[2016-12-06] MEDS: levETIRAcetam 250MG TABLET (KEPPRA) PO SCH ×2 (09:00→21:00)
--- NOTE | 2016-12-06 09:31 | IPN ---
DATE: 12/05/2016 46-year-old male with history of bipolar disorder, traumatic brain injury (TBI), and alcohol dependency admitted with symptoms compatible with bipolar disorder mixed episode. Patient was having suicidal thoughts, but also presenting hypomanic/manic behavior. MEDICATIONS: - Seroquel 100 mg by mouth at bedtime - BuSpar 15 mg by mouth three times a day - Depakote ER 1000 mg by mouth twice a day - Thorazine 100 mg by mouth at bedtime - Seroquel 12.5 mg by mouth three times a day as needed for anxiety SUBJECTIVE: "I'm sleeping better, but I feel manic." OBJECTIVE: Patient continues to display hypomanic behavior, rapid speech, hyperactive jumping from subject to subject. Patient is tolerating well the medications and denies side effects. No evidence of auditory or visual hallucinations or delusions. MENTAL STATUS EXAMINATION: Patient is dressed in [facility]. Patient is cooperative during exam, has fair eye contact. Speech is pressured. Mood is elated. Affect is expansive. No delusions or hallucinations. Memory, attention, and concentration are affected by his hypomanic episode. Patient is able to contract for safety and denies suicidal or homicidal ideation. Insight and judgment is fair. ASSESSMENT: 1. Bipolar disorder. 2. Traumatic brain injury. 3. Alcohol dependency. PLAN: 1. Continue with Seroquel 12.5 mg by mouth three times a day as needed anxiety plus 100 mg by mouth at bedtime. 2. Continue Thorazine 100 mg by mouth at bedtime. 3. Discontinue BuSpar. 4. Increase Depakote ER to 1250 mg by mouth twice a day. 5. Continue medication management, individual, and group therapy.
[2016-12-06] MEDS: chlorproMAZINE 25 MG TAB (Q0161) PO SCH (20:10)
[2016-12-06] MEDS: QUEtiapine FUMARATE 100 MG TAB PO SCH (20:10)
[2016-12-06 22:17] VITALS: BP 153/96
--- NOTE | 2016-12-07 05:31 | IPN ---
DATE: 12/06/2016 46-year-old male with history of bipolar disorder, traumatic brain injury (TBI), and alcohol dependency admitted with symptoms compatible with bipolar disorder mixed episode. Patient was displaying manic-like behavior but also depressed and suicidal. MEDICATIONS: - Seroquel 100 mg by mouth nightly, plus 12.5 mg by mouth three times a day as needed for anxiety - Depakote ER 1250 mg by mouth twice a day - Thorazine 100 mg by mouth nightly SUBJECTIVE: "I'm sleeping better, I just have a headache." OBJECTIVE: Patient continues to display hypomanic behavior but he feels that his rapid thinking and flight of ideas have been decreasing progressively. Throughout hospitalization, patient is tolerating well treatment. He is motivated for treatment. Patient denies auditory or visual hallucinations or delusions. MENTAL STATUS EXAMINATION: Patient is dressed in [facility]. Patient is cooperative during exam, has fair eye contact. Speech is pressured. Mood is elated. Affect is expansive. No delusions, hallucinations or paranoia. Memory, attention and concentration are affected by his hypomanic episode. Patient is able to contract for safety. Denies suicidal or homicidal ideation. Insight and judgment is fair. ASSESSMENT: 1. Bipolar disorder. 2. Traumatic brain injury. 3. Alcohol dependency. PLAN: 1. Continue with Seroquel 12.5 mg by mouth three times a day, plus 100 mg by mouth nightly. 2. Continue with Thorazine 100 mg by mouth nightly. 3. Continue with Depakote ER 1250 mg by mouth twice a day. 4. Continue medication management, individual, and group therapy.
[2016-12-07] MEDS: ACETAMINOPHEN TAB 650MG DOSE (2X325MG) PO PRN ×2 (05:32→23:50)
[2016-12-07] MEDS: traMADol 50 MG TAB PO SCH ×3 (05:54→21:47)
[2016-12-07 06:14] VITALS: BP 160/92
[2016-12-07] MEDS: levETIRAcetam 250MG TABLET (KEPPRA) PO SCH ×2 (09:00→20:11)
[2016-12-07] MEDS: DIVALPROEX 500MG *ER* TAB PO SCH ×2 (09:32→20:10)
[2016-12-07] MEDS: NICOTINE 21MG/24HR 1 EA TRANSDERMAL TD SCH (09:32)
[2016-12-07] MEDS: DIVALPROEX 250MG *ER* TAB PO SCH ×2 (09:32→20:11)
[2016-12-07] MEDS ORDERED: QUEtiapine FUMARATE 50 MG TAB PO PRN (09:45)
[2016-12-07 18:00] VITALS: BP 142/94
[2016-12-07] MEDS: chlorproMAZINE 25 MG TAB (Q0161) PO SCH (20:11)
[2016-12-07] MEDS: QUEtiapine FUMARATE 50 MG TAB PO SCH (20:11)
[2016-12-08] MEDS: traMADol 50 MG TAB PO SCH ×3 (06:17→21:45)
[2016-12-08 06:38] VITALS: BP 158/98
--- NOTE | 2016-12-08 08:33 | IPN ---
DATE: 12/07/2016 46-year-old male with a history of bipolar disorder, traumatic brain injury, and alcohol dependency, admitted with symptoms compatible with bipolar disorder, mixed episode. The patient was displaying manic-like behavior but also feeling depressed and having suicidal thoughts. MEDICATIONS: - Seroquel 100 mg by mouth at night - by mouth three times a day as needed for anxiety - Depakote ER 1250 mg by mouth twice a day - Thorazine 100 mg by mouth at night SUBJECTIVE: "I probably need to have less medications at night." OBJECTIVE: The patient is improving. He does not have manic behavior any longer, does not have flight of ideas. His speed of thought is normalizing and he feels that the nighttime medications are probably too strong. There is no evidence of delusions. His behavior is under control. He is interacting well with other patients and staff. The patient is able to contract for safety and denies suicidal or homicidal ideation during the interview. MENTAL STATUS EXAMINATION: The patient is dressed in [facility]. The patient is clean and well groomed. Has fair eye contact. Speech is somewhat fast but significantly improved. Mood is no longer manic and also has improved. Affect is congruent with mood. No delusions or hallucinations. Memory, attention and concentration are also improving. Insight and judgment fair. ASSESSMENT: 1. Bipolar disorder. 2. Traumatic brain injury. 3. Alcohol dependency. PLAN: 1. Continue with Thorazine 100 mg by mouth at night. 2. Decrease Seroquel to 50 mg by mouth at night plus 50 mg as needed for insomnia. 3. Continue Depakote ER 1250 mg by mouth twice a day. 4. Continue medication management, individual and group therapy.
[2016-12-08] MEDS: levETIRAcetam 250MG TABLET (KEPPRA) PO SCH ×2 (08:39→21:00)
[2016-12-08] MEDS: NICOTINE 21MG/24HR 1 EA TRANSDERMAL TD SCH (08:40)
[2016-12-08] MEDS: QUEtiapine FUMARATE 12.5 MG HALF-TAB PO PRN ×2 (08:41→17:30)
[2016-12-08] MEDS: DIVALPROEX 500MG *ER* TAB PO SCH ×2 (08:41→21:17)
[2016-12-08] MEDS: DIVALPROEX 250MG *ER* TAB PO SCH ×2 (08:41→21:17)
[2016-12-08] MEDS: ACETAMINOPHEN TAB 650MG DOSE (2X325MG) PO PRN (17:30)
[2016-12-08 18:00] VITALS: BP 138/90
--- NOTE | 2016-12-08 19:59 | IPN ---
DATE: 12/08/2016 HISTORY: A 46-year-old male with history of bipolar disorder, traumatic brain injury (TBI), and alcohol dependency, admitted with symptoms compatible with bipolar disorder mixed episode. The patient was displaying manic-like behavior, but also feeling depressed and having suicidal thoughts. MEDICATIONS: - Seroquel 50 mg by mouth at bedtime plus 50 mg as needed for insomnia - Thorazine 100 mg by mouth at bedtime - Depakote 1250 mg by mouth twice a day - Seroquel 12.5 mg by mouth three times a day as needed for anxiety SUBJECTIVE: "I feel less manic." OBJECTIVE: The patient slept better last night. Does not feel over sedated. He took 100 mg of Thorazine plus 50 mg of Seroquel. The patient is denying side effect from the medication. The patient has no longer flight of ideas. His mood is no longer manic or expansive. The patient is interacting with other patients and staff. His behavior is in good control. The patient is able to contract for safety and denies suicidal or homicidal ideations during the interview. MENTAL STATUS EXAMINATION: The patient is dressed in [facility]. The patient is calm and cooperative. Mood is less hypomanic. Affect is congruent with mood. No delusions or hallucinations. Memory is fair. Patient is fully oriented. Associations are intact. Thinking is logical. The patient is able to contract for safety and denies suicidal or homicidal ideations. Insight and judgment are fair. ASSESSMENT: 1. Bipolar disorder. 2. Traumatic brain injury (TBI). 3. Alcohol dependency. PLAN: 1. Continue with Thorazine 100 mg by mouth at bedtime. 2. Seroquel 50 mg by mouth at bedtime plus 50 mg as needed for insomnia. 3. Depakote ER 1250 mg by mouth twice a day. 4. Continue medication management, individual and group therapy.
[2016-12-08] MEDS: QUEtiapine FUMARATE 50 MG TAB PO SCH (21:16)
[2016-12-08] MEDS: chlorproMAZINE 25 MG TAB (Q0161) PO SCH (21:17)
[2016-12-09] MEDS: traMADol 50 MG TAB PO SCH ×3 (06:05→21:46)
[2016-12-09 06:42] VITALS: BP 144/89
[2016-12-09] MEDS: levETIRAcetam 250MG TABLET (KEPPRA) PO SCH ×2 (09:00→21:00)
[2016-12-09] MEDS: NICOTINE 21MG/24HR 1 EA TRANSDERMAL TD SCH (09:05)
[2016-12-09] MEDS: DIVALPROEX 250MG *ER* TAB PO SCH ×2 (09:06→21:46)
[2016-12-09] MEDS: DIVALPROEX 500MG *ER* TAB PO SCH ×2 (09:06→21:46)
[2016-12-09 18:00] VITALS: BP 146/8
[2016-12-09] MEDS: QUEtiapine FUMARATE 50 MG TAB PO SCH (21:46)
[2016-12-09] MEDS: chlorproMAZINE 25 MG TAB (Q0161) PO SCH (21:47)
[2016-12-10] MEDS: traMADol 50 MG TAB PO SCH ×3 (06:07→20:23)
[2016-12-10 07:05] VITALS: BP 142/92
[2016-12-10] MEDS: levETIRAcetam 250MG TABLET (KEPPRA) PO SCH ×2 (08:53→20:20)
[2016-12-10] MEDS: NICOTINE 21MG/24HR 1 EA TRANSDERMAL TD SCH (08:55)
[2016-12-10] MEDS: DIVALPROEX 500MG *ER* TAB PO SCH ×2 (08:55→20:22)
[2016-12-10] MEDS: DIVALPROEX 250MG *ER* TAB PO SCH ×2 (08:55→20:22)
--- NOTE | 2016-12-10 10:38 | IPN ---
DATE: 12/09/2016 HISTORY: 46-year-old male with history of bipolar disorder, traumatic brain injury (TBI) and alcohol dependency, admitted with symptoms compatible with bipolar mixed episode. Patient was displaying manic-like behavior and also feeling depressed and having suicidal thoughts. MEDICATIONS: - Seroquel 50 mg by mouth nightly, plus 50 mg as needed for insomnia - Thorazine 100 mg by mouth nightly - Depakote 1250 mg by mouth twice a day - Seroquel 12.5 mg by mouth three times a day as needed for anxiety SUBJECTIVE: "I'm feeling better." OBJECTIVE: Patient continues to improve. Patient is no longer manic/hypomanic. Patient is sleeping better at bedtime. Patient continues to have some degree of pressured speech and impulsivity, but no longer has flight of ideas. Patient denies side effect from medication. Denies auditory or visual hallucinations or delusions. Patient is motivated for treatment. MENTAL STATUS EXAMINATION: Patient is dressed in [facility]. Patient is calm and cooperative. Speech is somewhat rapid but no longer pressured. Mood is euthymic. Affect is congruent with mood. No delusions or hallucinations. Memory is fair. Attention and concentration are somewhat impaired. Patient is able to contract for safety. Denies suicidal or homicidal ideation during the interview. Insight and judgment is limited. ASSESSMENT: 1. Bipolar disorder. 2. Traumatic brain injury. 3. Alcohol dependency. PLAN: 1. Continue with Thorazine 100 mg by mouth nightly. 2. Continue with Seroquel 50 mg by mouth nightly, plus 50 mg by mouth as needed, insomnia. 3. Seroquel 12.5 mg by mouth three times a day as needed for anxiety. 4. Depakote ER 1250 mg by mouth twice a day. His valproic level is 93.6 with this dosage. 5. Continue medication management, individual and group therapy.
[2016-12-10 18:00] VITALS: BP 138/82
[2016-12-10] MEDS: QUEtiapine FUMARATE 50 MG TAB PO SCH (20:22)
[2016-12-10] MEDS: chlorproMAZINE 25 MG TAB (Q0161) PO SCH (20:22)
[2016-12-11] MEDS: traMADol 50 MG TAB PO SCH ×3 (06:01→22:00)
[2016-12-11 06:50] VITALS: BP 147/94
[2016-12-11] MEDS: levETIRAcetam 250MG TABLET (KEPPRA) PO SCH ×2 (09:00→19:58)
[2016-12-11] MEDS: NICOTINE 21MG/24HR 1 EA TRANSDERMAL TD SCH (09:40)
[2016-12-11] MEDS: DIVALPROEX 500MG *ER* TAB PO SCH ×2 (09:41→20:00)
[2016-12-11] MEDS: DIVALPROEX 250MG *ER* TAB PO SCH ×2 (09:41→20:00)
[2016-12-11 18:00] VITALS: BP 144/87
[2016-12-11] MEDS: QUEtiapine FUMARATE 50 MG TAB PO SCH (20:00)
[2016-12-11] MEDS: chlorproMAZINE 25 MG TAB (Q0161) PO SCH (20:00)
[2016-12-12] MEDS: traMADol 50 MG TAB PO SCH ×3 (06:20→21:51)
[2016-12-12 06:26] VITALS: BP 148/96
[2016-12-12] MEDS: NICOTINE 21MG/24HR 1 EA TRANSDERMAL TD SCH (08:41)
[2016-12-12] MEDS: DIVALPROEX 500MG *ER* TAB PO SCH ×2 (08:42→20:21)
[2016-12-12] MEDS: levETIRAcetam 250MG TABLET (KEPPRA) PO SCH ×2 (08:43→20:21)
[2016-12-12] MEDS: DIVALPROEX 250MG *ER* TAB PO SCH ×2 (08:43→20:21)
[2016-12-12] MEDS: FLUoxetine 10 MG CAP PO SCH (13:56)
[2016-12-12 18:00] VITALS: BP 137/92
[2016-12-12] MEDS: chlorproMAZINE 25 MG TAB (Q0161) PO SCH (20:21)
[2016-12-12] MEDS: QUEtiapine FUMARATE 50 MG TAB PO SCH (20:21)
[2016-12-13] MEDS: traMADol 50 MG TAB PO SCH ×3 (06:05→21:58)
[2016-12-13 06:40] VITALS: BP 141/87
--- NOTE | 2016-12-13 07:26 | IPN ---
DATE OF VISIT: 12/12/2016 46-year-old male with history of bipolar disorder, traumatic brain injury, alcohol dependence, he is admitted with symptoms compatible with bipolar mixed disorder. CURRENT MEDICATIONS: - Seroquel 50 mg nightly - Thorazine 100 mg nightly - Depakote 1250 mg twice a day - Seroquel 12.5 mg three times a day as needed for anxiety The patient is in a good mood. He has been refusing Keppra stating he does not have a seizure disorder, that his Depakote is for mood disorder. He has been changed to voluntary status. He is a 30 day readmit with history of alcoholism and depression. Mental Status: His mood is good. His appearance is appropriate. Eye contact is good. Speech is normal volume and articulation. He denies hallucinations and delusions. Remote and recent memory are intact. He is fully oriented with full fund of information. No loose associations. He has no suicidal or homicidal ideation. His judgment is good. Present medications as mentioned. - Depakote 1000 mg twice a day. - Depakote ER additionally 250 mg twice a day He asked to be placed on Prozac and was placed on Prozac 10 mg daily as he stated his mood was beginning to drop a bit. As stated, he is refusing Keppra Thorazine 100 mg by mouth nightly. TREATMENT PLAN: The patient is improved and will be preparing for discharge. ASSESSMENT: Bipolar disorder. Alcohol abuse. MTDD
[2016-12-13] MEDS: levETIRAcetam 250MG TABLET (KEPPRA) PO SCH ×2 (09:00→20:05)
[2016-12-13] MEDS: FLUoxetine 10 MG CAP PO SCH (09:10)
[2016-12-13] MEDS: DIVALPROEX 250MG *ER* TAB PO SCH ×2 (09:10→20:08)
[2016-12-13] MEDS: DIVALPROEX 500MG *ER* TAB PO SCH ×2 (09:10→20:08)
[2016-12-13] MEDS: NICOTINE 21MG/24HR 1 EA TRANSDERMAL TD SCH (09:10)
[2016-12-13] MEDS: busPIRone 5 MG TAB PO SCH ×2 (15:03→20:08)
[2016-12-13 18:00] VITALS: BP 142/98
[2016-12-13] MEDS: chlorproMAZINE 25 MG TAB (Q0161) PO SCH (20:08)
[2016-12-13] MEDS: QUEtiapine FUMARATE 50 MG TAB PO SCH (20:08)
--- NOTE | 2016-12-13 20:14 | IPN ---
DATE: 12/13/2016 46-year-old male with a history of bipolar disorder, traumatic brain injury, alcohol dependence, who was admitted here with symptoms compatible with bipolar mixed disorder. I met with the patient today. He asked to be placed back on BuSpar 15 mg three times a day, which I did. He continues to appear slightly hypomanic. He states that he was 30 years in [place] and moved here after a split with a girlfriend. He came here to be with his mother six months ago. He was on Prozac in [place] and requested to be placed on 10 mg of it. He was also on trazodone and Seroquel. In [place] he states that his use of alcohol, which included using four to six beers at a time, would cause significant trouble with his mood. Dr. Cox placed him on Thorazine as a sleep medication. He is on Depakote. He requested Prozac 10 mg, which we will then observe his moods with. He was placed on as needed Seroquel. I will be discontinuing some of the Seroquel orders. The patient was placed on voluntary status at his request. Mental Status: He denies hallucinations, delusions obsessions compulsions and phobias. He is fully oriented with a full fund of information. His affect his bright and his mood appears elevated. His eye contact is cood and he denies suicidal or homocidal ideation. Judgement is fair. CARL
[2016-12-14] MEDS: traMADol 50 MG TAB PO SCH ×3 (05:53→21:39)
[2016-12-14 06:00] VITALS: BP 137/90
[2016-12-14] MEDS: DIVALPROEX 500MG *ER* TAB PO SCH ×2 (08:48→20:03)
[2016-12-14] MEDS: DIVALPROEX 250MG *ER* TAB PO SCH ×2 (08:49→20:03)
[2016-12-14] MEDS: busPIRone 5 MG TAB PO SCH ×3 (08:49→20:03)
[2016-12-14] MEDS: FLUoxetine 10 MG CAP PO SCH (08:49)
[2016-12-14] MEDS: levETIRAcetam 250MG TABLET (KEPPRA) PO SCH ×2 (08:50→20:04)
[2016-12-14] MEDS: NICOTINE 21MG/24HR 1 EA TRANSDERMAL TD SCH (08:50)
--- NOTE | 2016-12-14 16:16 | IPN ---
DATE: 12/14/2016 Mr. Yang met with me today and I met with treatment team concerning him. He is feeling well and hoping to go home with his mother. He describes himself as a binge drinker. Will be following up with Lorene at the [facility] in [place]. His mood is good. No change in medications at this time. He feels he is sleeping very well on the present medications. Mental status, he denies hallucinations, delusions, obsessions, compulsions or phobias and is fully oriented with a full fund of information. His affect is bright and his mood appears elevated but only slightly. His eye contact is god and he denies suicidal or homicidal ideation. His judgment is fair. His present medications include Seroquel 50 mg at night , Keppra for seizure disorder of 500 twice a day, Depakote 1000 mg twice a day and Depakote ER [address] mg [address] Cox placed him on chlorpromazine 100 mg at bedtime and he is on BuSpar 15 mg three times a day. DISCHARGE PLANNING: Return home tomorrow to followup care as mentioned.
[2016-12-14 18:00] VITALS: BP 144/91
[2016-12-14] MEDS: QUEtiapine FUMARATE 50 MG TAB PO SCH (20:03)
[2016-12-14] MEDS: chlorproMAZINE 25 MG TAB (Q0161) PO SCH (20:03)
[2016-12-15] MEDS: traMADol 50 MG TAB PO SCH (06:20)
[2016-12-15 06:23] VITALS: BP 140/96
[2016-12-15] MEDS ORDERED: CHLOR25TA PO (08:29)
[2016-12-15] MEDS ORDERED: DEPA500T2 PO (08:29)
[2016-12-15] MEDS ORDERED: FLUO10CA9 PO (08:29)
[2016-12-15] MEDS ORDERED: KEPP250T5 PO (08:29)
[2016-12-15] MEDS ORDERED: BUSP5TA PO (08:29)
[2016-12-15] MEDS ORDERED: DEPA250T2 PO (08:29)
[2016-12-15] MEDS ORDERED: TRAM50TA2 PO (08:29)
[2016-12-15] MEDS ORDERED: QUET5TAB PO (08:29)
[2016-12-15] MEDS: NICOTINE 21MG/24HR 1 EA TRANSDERMAL TD SCH (08:51)
[2016-12-15] MEDS: levETIRAcetam 250MG TABLET (KEPPRA) PO SCH (08:51)
[2016-12-15] MEDS: FLUoxetine 10 MG CAP PO SCH (08:53)
[2016-12-15] MEDS: DIVALPROEX 500MG *ER* TAB PO SCH (08:53)
[2016-12-15] MEDS: busPIRone 5 MG TAB PO SCH (08:53)
[2016-12-15] MEDS: DIVALPROEX 250MG *ER* TAB PO SCH (08:53)
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
== END 2016-12-15 12:50 | disposition home or self-care (01) | DRG 753 ==
LOC: M ED 23:38 → M ED INP 12-01 02:04 → M PSY 12-01 03:40
PROVIDERS: ADMIT Psychiatry & Neurology Psychiatry; ATTEND Psychiatry & Neurology Psychiatry
DX: F31.9 Bipolar disorder, unspecified (principal); G40.909 Epilepsy, unspecified, not intractable, without status epilepticus; R45.851 Suicidal ideations; F10.10 Alcohol abuse, uncomplicated; F17.290 Nicotine dependence, other tobacco product, uncomplicated; G89.29 Other chronic pain; Z81.8 Family history of other mental and behavioral disorders; Z81.1 Family history of alcohol abuse and dependence; Z87.820 Personal history of traumatic brain injury; Z79.899 Other long term (current) drug therapy

== ENCOUNTER 2017-01-12 15:24 | Inpatient (IN) | payer MEDICARE ==
[~2017-01-12] VITALS: Ht 172.7 cm; Wt 108.3 kg
[~2017-01-12 15:24] MED LIST changes: +CHLOR25TA PO; +DEPA250T2 PO; +DIVA500T9 PO; +FLUO10CA9 PO; +FLUO40CA PO
[2017-01-12] MEDS ORDERED: OXAZEPAM 15 MG CAP PO ONE (16:15)
[2017-01-12 16:54] LABS: MEAN CORPUSCULAR HEMOGLOBIN 30.9 pg (27.0-33.0); MEAN CORPUSCULAR HGB CONC 35.1 g/dl (32.0-36.5); MEAN CORPUSCULAR VOLUME 88.1 fl (80.0-96.0); WHITE BLOOD COUNT 5.8 K/mm3 (4.0-10.0)
[2017-01-12 17:14] LABS: METHADONE URINE NEGATIVE (NEGATIVE)
[2017-01-12 17:23] LABS: ALBUMIN 3.7 GM/DL (3.2-5.2); ALBUMIN/GLOBULIN RATIO 1.19 (1.00-1.93); ALKALINE PHOSPHATASE 75 U/L (45-117); ALT/SGPT 28 U/L (12-78); ANION GAP 9 MEQ/L (8-16); AST/SGOT 12 U/L (15-37); BILIRUBIN,DIRECT < 0.1 MG/DL (0.0-0.2); BILIRUBIN,TOTAL 0.2 MG/DL (0.2-1.0); BLOOD UREA NITROGEN 17 MG/DL (7-18); CALCIUM LEVEL 8.7 MG/DL (8.5-10.1); CARBON DIOXIDE LEVEL 27 MEQ/L (21-32); CHLORIDE LEVEL 105 MEQ/L (98-107); CREATININE FOR GFR 0.87 MG/DL (0.70-1.30); GLOMERULAR FILTRATION RATE > 60.0 (>60); GLUCOSE, FASTING 121 MG/DL (70-105); POTASSIUM SERUM 3.7 MEQ/L (3.5-5.1); SODIUM LEVEL 141 MEQ/L (136-145); TOTAL PROTEIN 6.8 GM/DL (6.4-8.2)
[2017-01-12] MEDS ORDERED: LORazepam 2 MG TAB PO PRN (22:00)
[2017-01-12] MEDS ORDERED: MAALOX 30 ML SUSP *UDC PO PRN (22:00)
[2017-01-12] MEDS ORDERED: MOM 30ML SUSPENSION UDC PO PRN (22:00)
[2017-01-12] MEDS ORDERED: traZODone 50 MG TAB PO PRN (22:00)
[2017-01-12] MEDS ORDERED: ISOVUE-370 76% 100ML VIAL (Q9967) As Ordered ONE (22:26)
--- NOTE | 2017-01-12 23:00 | REPUSA ---
CT of the abdomen and pelvis with contrast Clinical statement: Pain. Trauma. Technique: Multiple axial CT images were obtained from the base of the lungs through the floor of the pelvis utilizing 5 mm axial slices after administration of nonionic intravenous contrast. Coronal an d sagittal reconstructions were also obtained. Comparison: 08/03/2016. Findings: Chest: The visualized lung bases are clear. Abdomen: The liver, spleen, pancreas, kidneys, gallbladder, and adrenal glands are unremarkable. The simple cyst in the left lobe of the liver is stable. The aorta is within normal limits. There is no e vidence of abdominal lymphadenopathy or ascites. Pelvis: The bowel is unremarkable, with no obstructive or inflammatory changes. The appendix is vickie l. The urinary bladder is within normal limits. The other pelvic structures appear grossly intact. Th ere is no evidence of pelvic lymphadenopathy or ascites. Bones: There are no suspicious osseous abnormalities seen. Impression: Unremarkable CT examination of the abdomen and pelvis. No acute traumatic abnormality sari reciated.
[2017-01-12] MEDS ORDERED: QUET1TAB8 PO (23:02)
[2017-01-12] MEDS ORDERED: BUSP15TA47 PO (23:02)
[2017-01-12] MEDS ORDERED: CLON1TAB PO (23:02)
[2017-01-12] MEDS ORDERED: TRAZ150T14 PO (23:02)
[2017-01-12] MEDS ORDERED: DIVA500T3 PO (23:02)
[2017-01-12] MEDS ORDERED: CHLOR10TAB PO (23:02)
[2017-01-12] MEDS ORDERED: FLUO40CA PO (23:02)
--- NOTE | 2017-01-12 23:10 | REPUSA ---
CT angiogram of the chest Clinical statement: trauma. Technique: Multiple axial CT images were obtained from the thoracic inlet through the upper abdomen a fter a bolus administration of nonionic intravenous contrast. Coronal and sagittal reconstructions we re also obtained. No comparison is available. Findings: The pulmonary arteries are well-opacified with contrast, with no intraluminal filling defec ts to suggest embolism. The thoracic aorta is unremarkable. Thyroid gland is within normal limits. Th ere is no thoracic lymphadenopathy. There are no pericardial or pleural effusions. The lungs are kalina r. Limited imaging of the upper abdomen is unremarkable. There are no suspicious osseous lesions. Impression: Unremarkable CT examination of the chest. No evidence of pulmonary embolism. No acute tra umatic injury.
[2017-01-13] VITALS (7 sets, daily range): BP systolic 136–153; BP diastolic 77–94
[2017-01-13] MEDS ORDERED: chlorproMAZINE 25 MG TAB (Q0161) PO PRN (00:30)
[2017-01-13] MEDS: QUEtiapine FUMARATE 100 MG TAB PO SCH ×2 (00:58→21:05)
[2017-01-13] MEDS: DIVALPROEX 500 MG TAB PO SCH ×3 (00:58→21:05)
[2017-01-13] MEDS: traZODone 50 MG TAB PO SCH ×2 (00:58→21:06)
[2017-01-13] MEDS: THIAMINE 100 MG TAB PO SCH ×3 (00:58→21:05)
[2017-01-13] MEDS: ACETAMINOPHEN TAB 650MG DOSE (2X325MG) PO PRN ×3 (01:00→21:08)
[2017-01-13] MEDS: FOLIC ACID 1 MG TAB PO SCH (08:35)
[2017-01-13] MEDS: MULTIVITAMINS/MINERALS THERAP 1 TAB PO SCH (08:35)
[2017-01-13] MEDS: clonazePAM 1 MG TAB PO PRN ×2 (08:36→21:56)
[2017-01-13] MEDS: FLUoxetine 20 MG CAP PO SCH (08:36)
--- NOTE | 2017-01-13 08:53 | REP ---
AP LATERAL RIGHT KNEE: 01/12/2017. Clinical history: Trauma. Findings: Some minor prepatellar soft tissue swelling on the lateral view noted. There is no fracture, avulsion, osteochondral defect or loose body on these two images. Proximal tibiofibular articulation normal. Some prepatellar swelling noted. Impression: 1. Minor swelling prepatellar region without fracture, joint effusion, avulsion, loose body or other acute finding. Signed by Hardy Vera MD 01/13/2017 02:58 P
[2017-01-13] MEDS ORDERED: busPIRone 5 MG TAB PO SCH (09:00)
[2017-01-13] MEDS ORDERED: DIVALPROEX 500MG *ER* TAB PO SCH (09:00)
[2017-01-13] MEDS: LIDOCAINE 5% (LIDODERM) PATCH TD SCH (09:30)
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
[2017-01-13] MEDS: NICOTINE 21MG/24HR 1 EA TRANSDERMAL TD SCH (10:27)
[2017-01-13] MEDS: busPIRone 5 MG TAB PO SCH (21:05)
[2017-01-13] MEDS: **NOTE PATIENT COMMENT** MISC XX SCH (21:22)
[2017-01-13] MEDS: traMADol 50 MG TAB PO PRN (21:57)
[2017-01-14 06:29] VITALS: BP 149/94
[2017-01-14] MEDS: traMADol 50 MG TAB PO PRN ×2 (08:45→20:10)
[2017-01-14] MEDS: clonazePAM 1 MG TAB PO PRN ×2 (08:46→20:42)
[2017-01-14] MEDS: MULTIVITAMINS/MINERALS THERAP 1 TAB PO SCH (08:46)
[2017-01-14] MEDS: DIVALPROEX 500 MG TAB PO SCH ×2 (08:46→20:09)
[2017-01-14] MEDS: busPIRone 5 MG TAB PO SCH ×3 (08:46→20:08)
[2017-01-14] MEDS: FLUoxetine 20 MG CAP PO SCH (08:47)
[2017-01-14] MEDS: FOLIC ACID 1 MG TAB PO SCH (08:47)
[2017-01-14] MEDS: THIAMINE 100 MG TAB PO SCH ×2 (08:47→20:09)
[2017-01-14] MEDS: NICOTINE 21MG/24HR 1 EA TRANSDERMAL TD SCH (08:47)
[2017-01-14] MEDS: LIDOCAINE 5% (LIDODERM) PATCH TD SCH (08:49)
[2017-01-14 09:00] VITALS: BP 149/94
[2017-01-14] MEDS: ACETAMINOPHEN TAB 650MG DOSE (2X325MG) PO PRN (13:30)
[2017-01-14 18:00] VITALS: BP 150/87
[2017-01-14] MEDS: traZODone 50 MG TAB PO SCH (20:08)
[2017-01-14] MEDS: QUEtiapine FUMARATE 100 MG TAB PO SCH (20:08)
[2017-01-14] MEDS: **NOTE PATIENT COMMENT** MISC XX SCH (21:00)
--- NOTE | 2017-01-14 21:25 | IPN ---
DATE: 01/14/2017 SUBJECTIVE: I met with Mr. Yang today and staff. Mr. Yang was irritable. He stated that he "did not want to be lectured." He has had numerous admissions here for alcohol intoxication and bipolar disorder. He states his wishes to go back to [place] and be with his family, take Antabuse, and go to Alcoholics Anonymous (AA). He states he plans to "turn his life around." Irritability may still be due to his alcohol withdrawal. The patient requested tramadol for his back pain and now says his back pain is worse. MENTAL STATUS EXAMINATION: No disturbance of speech, no disturbance of thought process. No loose associations. No abnormal or psychotic thoughts. Judgment and insight are poor. He is fully oriented. Recent and remote memory intact. Attention and concentration are poor. Fund of knowledge is adequate. Mood is irritable. Affect is congruent. The patient continues to be, in my opinion based on review of records, in denial of his difficulties, and prognosis at this time is poor. The patient states," I thought I could take a few drinks and get away with it." DIAGNOSES: 1. Bipolar disorder. 2. Alcohol dependence. MTDD
[2017-01-15 07:05] VITALS: BP 158/98
[2017-01-15] MEDS: NICOTINE 21MG/24HR 1 EA TRANSDERMAL TD SCH (08:24)
[2017-01-15] MEDS: FLUoxetine 20 MG CAP PO SCH ×2 (08:24→10:51)
[2017-01-15] MEDS: busPIRone 5 MG TAB PO SCH ×3 (08:24→20:40)
[2017-01-15] MEDS: FOLIC ACID 1 MG TAB PO SCH (08:24)
[2017-01-15] MEDS: clonazePAM 1 MG TAB PO PRN ×2 (08:25→20:40)
[2017-01-15] MEDS: MULTIVITAMINS/MINERALS THERAP 1 TAB PO SCH (08:25)
[2017-01-15] MEDS: THIAMINE 100 MG TAB PO SCH (08:26)
[2017-01-15] MEDS: traMADol 50 MG TAB PO PRN ×2 (08:26→20:40)
[2017-01-15] MEDS: DIVALPROEX 500 MG TAB PO SCH ×2 (08:26→20:40)
[2017-01-15] MEDS: LIDOCAINE 5% (LIDODERM) PATCH TD SCH (09:00)
[2017-01-15 11:38] VITALS: BP 156/85
[2017-01-15 18:00] VITALS: BP 177/87
[2017-01-15] MEDS: QUEtiapine FUMARATE 100 MG TAB PO SCH (20:39)
[2017-01-15] MEDS: traZODone 50 MG TAB PO SCH (20:39)
[2017-01-15] MEDS: **NOTE PATIENT COMMENT** MISC XX SCH (20:46)
[2017-01-15 20:47] VITALS: BP 146/72
[2017-01-15] MEDS ORDERED: QUEtiapine FUMARATE 100 MG TAB PO SCH (21:00)
[2017-01-16 06:25] VITALS: BP 142/80
--- NOTE | 2017-01-16 06:37 | IPN ---
DATE: 01/15/2017 SUBJECTIVE: Aramis Yang yesterday appeared irritable on interview. He specifically stated that his outpatient physician had criticized Thorazine as the" worst possible medication" to use. I noticed that he was still being prescribed Thorazine, and though I discussed with him the minimal side effects and dangers of using Thorazine, I discontinued it. Today, Mr. Yang is hyper-verbal with elevated mood and increased energy. I decreased his fluoxetine to 20 mg from 40, increased his Seroquel to 300 mg at bedtime, and have ordered a Depakote level. MENTAL STATUS EXAMINATION: Speech is rapid. Thought process is normal. Associations mildly loose. No abnormal or psychotic thoughts. Judgment and insight poor. Fully oriented. Recent and remote memory intact. Attention and concentration are poor. Language intact. Full fund of knowledge. Mood is elevated. Affect is excessively bright. IMPRESSION: 1. Bipolar disorder manic type. 2. Alcohol dependence. PLAN: Medication and laboratory changes as mentioned. CARL
[2017-01-16] MEDS: clonazePAM 1 MG TAB PO PRN ×2 (08:20→21:00)
[2017-01-16] MEDS: busPIRone 5 MG TAB PO SCH ×2 (08:20→12:16)
[2017-01-16] MEDS: traMADol 50 MG TAB PO PRN (08:20)
[2017-01-16] MEDS: FOLIC ACID 1 MG TAB PO SCH (08:20)
[2017-01-16] MEDS: FLUoxetine 20 MG CAP PO SCH (08:21)
[2017-01-16] MEDS: LIDOCAINE 5% (LIDODERM) PATCH TD SCH (08:21)
[2017-01-16] MEDS: MULTIVITAMINS/MINERALS THERAP 1 TAB PO SCH (08:24)
[2017-01-16] MEDS: DIVALPROEX 500 MG TAB PO SCH ×2 (08:24→20:04)
[2017-01-16] MEDS: NICOTINE 21MG/24HR 1 EA TRANSDERMAL TD SCH (08:24)
[2017-01-16 11:20] VITALS: BP 140/86
--- NOTE | 2017-01-16 13:40 | IPNPDOC ---
[facility] Progress Note Progress Note DATE OF SERVICE: 01/16/17 HISTORY: day 5 of admission for bipolar disorder and alcohol dependence. VITAL SIGNS: See below. NEW TEST RESULTS: depakote level is 81.1 (rage 50-100) CURRENT MEDICATIONS: See below. MENTAL STATUS EXAMINATION: Patient is a 46-year old male, who is being treated for suicidal thinking while intoxicated. He climbed up a deer stand and started to threaten to would jump. He admits to slipping and falling 20 feet out of the stand. He has minor injuries to his knee and his ribs. Speech: Is clear, mostly goal directed, less tangential then when first admitted. Language skills are good. Thought processes includes: no delusions or compulsions, future oriented.Logical. Thought content: family in [place]. Girl friend in [place]. Discharge. Abstract reasoning, and computation: fair. Description of associations: fine. Description of abnormal or psychotic thoughts: pt denies voices and visions. Denies feeling suicidal or having thoughts over the weekend of suicide. He would like to be discharged and move to [place] where his family is located. Today he tells me his former GF in [place] contacted him and wants him to move in with her. Unsure if this is true or not. Judgment: poor Insight: limited, wants to quit using alcohol which shows good insight Orientation: well oriented in all spheres. Recent and remote memory: poor very often due to head trauma. Attention span and concentration: poor at times due to head trauma. Fund of knowledge: adequate. Mood: euthymic Affect: congruent. DIAGNOSES: 1. Bipolar disorder 2. Alcohol dependence ASSESSMENT: MD information technology manager over the weekend found pt to be rather irritable and "manic" which could be related to his prozac. On his previous admission here we lowered his prozac prior to discharge and he did well. We have lowered it again and would encourage that prozac remain at 20 mg in a.m. He complains of anxiety and states his buspar isn't helping him as much as it used to. We will increase thi sto 20 mg tid. He was advised that he may feel fatigue until he gets used to it. Pts mood has been mostly good during the admission. He keeps to himself much of the time though he is encouraged to interact with peers and attend programming. He is often observed in bed. the area around his bed was full of candy wrappers and rather messy and he agreed to clean it up. He c/o poor memory. He states he really wants to quit drinking and we will order antabuse on discharge. It is not currently available in our formulary Correctional Treatment Specialist was able to speak with pts mother today. She advises that Aramis will not be returning to the apartment on their property. She has obtained an efficiency apartment for him in [place] on [address]. She says that even though [place] of the city [place] the [place] he was still able to find alcohol. According to Aramis his family drinks daily and it is easy for him to obtain alcohol. He does not have a car but does ride a bike. Mom states he often forgets about his outpatient appts and that he does not manage his meds well. Mom is a former nurse and says at times it has been helpful for her to set up his meds in a pill box but then Aramis gets upset as he is "46 yo man" who should not need his mother to do this for him. Aramis continues to talk about moving to [place] and resuming a relationship with a female there. His mother says moving to [place] is realistic for him as he has done so in the past and done well. If Aramis decides to remain in [place] we will discuss case management services for him. If he is moving to [place] we will not involve them at this time. No matter what, Aramis needs to attend AA, take Antabuse and immediately stop drinking alcohol. He also requests Tramadol for pain and has been advise this medicaiton is a poor achoice for him given his seizure disorder. Motrin/ ibuprofen should be sufficient for him while his knee and ribs heal. MANAGEMENT PLAN: reduce prozac to 20 mg in a.m., continue depakote, seroquel, and trazodone, along with buspar. TIME SPENT: 40 minutes. Vital Signs Vital Signs Date Time Temp Pulse Resp B/P Pulse Ox O2 Delivery O2 Flow Rate FiO2 01/16/17 11:20 98.2 88 18 140/86 01/13/17 06:06 Room Air 01/12/17 23:31 96 Laboratory Data 24H Labs Laboratory Tests 2 01/16/17 07:32: Valproic Acid (Depakene) Level 81.1 Current Medications Current Medications Acetaminophen (Tylenol Tab) 650 mg Q6HP PRN PO HEADACHE or DISCOMFORT Last administered on 01/14/17 13:30; Start 01/12/17 at 22:00; Stop 02/11/17 at 21:59 Al Hydrox/Mg Hydrox/Simethicone (Mylanta) 30 ml Q4HP PRN PO HEARTBURN/ INDIGESTION; Start 01/12/17 at 22:00; Stop 02/11/17 at 21:59 Buspirone HCl (Buspar) 15 mg TID PO Last administered on 01/13/17 08:36; Start 01/13/17 at 09:00; Stop 01/13/17 at 13:33; Status DC Buspirone HCl (Buspar) 15 mg TID@08,13,20 PO Last administered on 01/16/17 12: 16; Start 01/13/17 at 13:33; Stop 02/12/17 at 08:59 Chlorpromazine HCl (Thorazine) 100 mg QHSP PRN PO ANXIETY; Start 01/13/17 at 00 :30; Stop 02/12/17 at 00:29; Status Cancel Clonazepam (KlonoPIN) 1 mg BIDP PRN PO ANXIETY Last administered on 01/16/17 08:20; Start 01/13/17 at 00:30; Stop 01/20/17 at 00:29 Divalproex Sodium (Depakote Er) 1,000 mg BID PO ; Start 01/13/17 at 09:00; Stop 01/13/17 at 09:00; Status DC Divalproex Sodium (Depakote) 1,000 mg BID PO Last administered on 01/16/17 08: 24; Start 01/12/17 at 21:00; Stop 02/11/17 at 20:59 Fluoxetine HCl (PROzac) 20 mg DAILY PO Last administered on 01/16/17 08:21; Start 01/15/17 at 09:00; Stop 02/14/17 at 08:59 Fluoxetine HCl (PROzac) 40 mg DAILY PO Last administered on 01/15/17 08:24; Start 01/13/17 at 09:00; Stop 01/15/17 at 09:00; Status DC Folic Acid (Folic Acid) 1 mg DAILY PO Last administered on 01/16/17 08:20; Start 01/13/17 at 09:00; Stop 02/12/17 at 08:59 Home Med (Med Rec Complete!) ASDIRECTED XX ; Start 01/12/17 at 23:15; Stop at 23:15; Status DC Lidocaine (Lidoderm Patch) 2 patch DAILY TD Last administered on 01/13/17 09: 30; Start 01/13/17 at 09:00; Stop 02/12/17 at 08:59 Lorazepam (Ativan) 2 mg ASDIRECTED PRN PO SEE PROTOCOL; Start 01/12/17 at 22:00 ; Stop 01/19/17 at 21:59 Magnesium Hydroxide (Milk Of Magnesia) 30 ml DAILYPRN PRN PO CONSTIPATION; Start 01/12/17 at 22:00; Stop 02/11/17 at 21:59 Multivitamins (Theragram-M) 1 tab DAILY PO Last administered on 01/16/17 08:24 ; Start 01/13/17 at 09:00; Stop 02/12/17 at 08:59 Nicotine (Nicoderm Cq 21mg) 1 patch DAILY TD Last administered on 01/16/17 08: 24; Start 01/13/17 at 09:00; Stop 02/12/17 at 08:59 Non-Formulary Medication ( See Comment Field Below ) REMOVE LIDODERM PATCH DAILY@21 XX Last administered on 01/15/17 20:46; Start 01/13/17 at 21:00; Stop 02/12/17 at 20:59 Quetiapine Fumarate (SEROquel) 100 mg QHS PO Last administered on 01/14/17 20: 08; Start 01/12/17 at 21:00; Stop 01/15/17 at 09:06; Status DC Quetiapine Fumarate (SEROquel) 300 mg QHS PO ; Start 01/15/17 at 21:00; Stop at 21:00; Status DC Quetiapine Fumarate (SEROquel) 300 mg QHS PO Last administered on 01/15/17 20: 39; Start 01/15/17 at 21:00; Stop 02/14/17 at 20:59 Thiamine HCl (Thiamine HCl) 100 mg BID PO Last administered on 01/15/17 08:26 ; Start 01/12/17 at 21:00; Stop 01/15/17 at 09:01; Status DC Tramadol HCl (Ultram) 100 mg Q8HP PRN PO SEVERE PAIN (PS 8-10) Last administered on 01/16/17 08:20; Start 01/13/17 at 21:45; Stop 01/20/17 at 21:44 Trazodone HCl (Desyrel) 50 mg QHSP PRN PO INSOMNIA; Start 01/12/17 at 22:00; Stop 01/13/17 at 00:30; Status DC Trazodone HCl (Desyrel) 150 mg QHS PO Last administered on 01/15/17 20:39; Start 01/12/17 at 21:00; Stop 02/11/17 at 20:59 Allergies Coded Allergies: No Known Allergies (Unverified , 11/30/16) Emily Culp Jan 16, 2017 13:40
[2017-01-16 18:00] VITALS: BP 146/96
[2017-01-16] MEDS: busPIRone 10 MG TAB PO SCH (20:04)
[2017-01-16] MEDS: ACETAMINOPHEN TAB 650MG DOSE (2X325MG) PO PRN (20:05)
[2017-01-16] MEDS: QUEtiapine FUMARATE 100 MG TAB PO SCH (21:00)
[2017-01-16] MEDS: **NOTE PATIENT COMMENT** MISC XX SCH (21:00)
[2017-01-16] MEDS: traZODone 50 MG TAB PO SCH (21:00)
[2017-01-17 06:37] VITALS: BP 122/84
[2017-01-17] MEDS: LIDOCAINE 5% (LIDODERM) PATCH TD SCH (08:36)
[2017-01-17] MEDS: NICOTINE 21MG/24HR 1 EA TRANSDERMAL TD SCH (08:40)
[2017-01-17] MEDS: FLUoxetine 20 MG CAP PO SCH (08:40)
[2017-01-17] MEDS: clonazePAM 1 MG TAB PO PRN (08:40)
[2017-01-17] MEDS: FOLIC ACID 1 MG TAB PO SCH (08:40)
[2017-01-17] MEDS: busPIRone 10 MG TAB PO SCH ×2 (08:40→11:55)
[2017-01-17] MEDS: MULTIVITAMINS/MINERALS THERAP 1 TAB PO SCH (08:41)
[2017-01-17] MEDS: DIVALPROEX 500 MG TAB PO SCH (08:41)
--- NOTE | 2017-01-17 10:04 | DS.PDOC ---
[facility] Discharge Summary Discharge Summary DATE OF ADMISSION: Jan 12, 2017 at 22:09 DATE OF DISCHARGE: Jan 17, 2017 at 9:49 DISCHARGE DIAGNOSES: 1. Bipolar I disorder, current episode depressed 2. Alcohol dependence 3. TBI 4. Pain REASON FOR ADMISSION: pt made suicidal statements after consuming 1/2 pint of run and falling from a deer stand. CONSULTANTS INVOLVED:PA/x ray/psychiatry TREATMENT AND PROGRESS ON THE UNIT : pt demonstrates insight into his problems by admitting that alcohol is a bad choice for him. He states he becomes suicidal when he consumes even a little bit of it. He realizes that alcohol is not good for him in combination with his seizure meds, it affects his mood and his memory. He states that those around him, all his family members drink alcohol. Pt would like to move to [place] where his adult children live. HOSPITAL COURSE: Pt had to have his prozac lowered during admission when he showed irritability over the weekend. On a previous admission his prozac was lowered as well. Pt complains that the buspar is no longer helpful. He requested an increase. Buspar 20 mg tid will be ordered on discharge. In light of his frequent alcohol consumption and his propensity for suicidal thinking it is recommended his clonazepam and or ativan be discontinued due to it's potential for abuse and the disinhibited effect it can have on him. Pts seroquel was also increased to help with mood instability. Pt slept well and ate well on the unit. When in the milieu he interacted appropriately with peers and staff. DISCHARGE ASSESSMENT:Depakote level 81.1 (WNL). Pt is cautioned not to seek out tramadol for pain relief as it lowers the seizure threshold. Ibuprofen is an appropriate choice for his pain. Pt is directed to stop the use of alcohol and he asked to be prescribed antabuse on discharge. His request will be honored. It was stressed to Aramis that he begin the antabuse at half the prescribed doseage of 250mg given that the antabuse has been known to cause seizures. He was instructed to increase to 250 mg (1 full tab) after 1 week if he does not have any problems with the medication. Should he have a seizure, he was instructed to stop the antabuse entirely and discuss other treatment options with his outpatient provider. We attempted to contact his providers at [facility] but they were not available due to the . His care was discussed with his mother. His mother is concerned for him. She has obtained housing for him in the city [facility] hoping he will take advantage of the proximity to attend AA meetings and engage in other activities unrelated to drinking. The patient uses a bicycle for transportation. His discharge medications will be sent to a pharmacy near his new home. It is unclear whether pt will actually move to [place]. He discussed with repairer typewriter his interest in becoming more active in the community through volunteering and attending orthodoxy. MENTAL STATUS EXAMINATION ON DISCHARGE: Patient is a 46-year old male, who is treated for bipolar I disorder secondary to closed head trauma Speech is occasionally slurred but usually understandable. Language skills are adequate, some impairment due to tbi. Thought processes: future oriented, logical Thought content: family, antabuse, [place] Abstract reasoning, and computation: poor Description of associations: fair Description of abnormal or psychotic thoughts: not psychotic or manic, hallucinations denied. Judgment:fair Insight: fair Orientation to person, place and situation. Recent and remote memory: impaired at times and adequate at times. word recall can be difficult for him on occasion. Attention span and concentration: fair Fund of knowledge: adequate Mood: euthymic Affect: congruent MEDICATIONS ON DISCHARGE: - antabuse for alcohol dependence 250 mg begin with 1/2 tab x 7 days -prozac for mood only 20 mg q a.m. - depakote for mood stability/seizures-1000 mg twice a day. -trazodone for insomnia 150 mg at bedtime. klonopin for anxiety - recommend this be tapered and discontinued as an outpatient due to alcohol abuse and existing memory problems. quetiapine for mood stabilization 300 mg at hs buspirone 20 mg (10 mg take 2 tabs) tid. PLAN/FOLLOWUP ARRANGEMENTS: Pt to follow up at [facility] with Lorene weekly as before. See psychiatrist as scheduled. Take medications as prescribed. The amount of time spent in the coordination of care for this patient was approximately 40 minutes. Vital Signs/I&Os Vital Signs Date Time Temp Pulse Resp B/P Pulse Ox O2 Delivery O2 Flow Rate FiO2 01/17/17 06:37 97.4 99 20 122/84 01/13/17 06:06 Room Air 01/12/17 23:31 96 Medications Scheduled Buspirone HCl (Buspirone HCl) 15 Mg Tab 15 MG PO TID (Reported) Buspirone HCl (Buspirone HCl) 10 Mg Tab #21 10 MG PO TID ANXIETY take 2 tabs by mouth 3 x a day Disulfiram (Disulfiram) 250 Mg Tab #7 250 MG PO DAILY alcohol dependence may begin with 1/2 tab x 7 days Divalproex Sodium (Divalproex Sodium Dr) 500 Mg Tab 1,000 MG PO BID (Reported) Fluoxetine Hcl (Fluoxetine HCl) 40 Mg Cap 40 MG PO DAILY (Reported) Fluoxetine Hcl (Fluoxetine HCl) 20 Mg Cap #7 20 MG PO DAILY MOOD take in the morning not at bedtime Quetiapine Fumerate (Quetiapine Fumarate) 100 Mg Tab 100 MG PO QHS (Reported) Quetiapine Fumerate (Quetiapine Fumarate) 300 Mg Tab #7 300 MG PO DAILY MOOD take at bedtime Trazodone HCl (Trazodone HCl) 150 Mg Tab 150 MG PO QHS (Reported) Scheduled PRN Chlorpromazine HCl (Chlorpromazine HCl) 100 Mg Tab 100 MG PO QHS PRN PRN ANXIETY (Reported) Clonazepam (Clonazepam) 1 Mg Tab 1 MG PO BID PRN PRN ANXIETY (Reported) Allergies Coded Allergies: No Known Allergies (Unverified , 11/30/16) Emily Culp Jan 17, 2017 10:04
[2017-01-17] MEDS ORDERED: QUET1TAB10 PO (10:46)
[2017-01-17] MEDS ORDERED: BUSP10TA PO (10:46)
[2017-01-17] MEDS ORDERED: DISU250T PO (10:46)
[2017-01-17] MEDS ORDERED: FLUO20CA9 PO (10:46)
[2017-01-17] MEDS ORDERED: TYLE325C PO (11:58)
== END 2017-01-17 12:15 | disposition home or self-care (01) | DRG 885 ==
LOC: M ED 22:08 → M ED INP 22:09 → M PSY 23:50
PROVIDERS: ADMIT Psychiatry & Neurology Psychiatry; ATTEND Psychiatry & Neurology Child & Adolescent Psychiatry
DX: F31.9 Bipolar disorder, unspecified (principal); F10.20 Alcohol dependence, uncomplicated; M54.9 Dorsalgia, unspecified; R56.9 Unspecified convulsions; Z91.5 Personal history of self-harm; Z87.820 Personal history of traumatic brain injury